=== PATIENT | male | born 1970 | race Caucasian/White ===

== ENCOUNTER 2021-04-20 09:53 | Outpatient (REF) | payer BC, SELFPAY ==
[2021-04-20 11:02] LABS: MANUAL DIFF FLAG NO
[2021-04-20 11:19] LABS: Basophils Absolute Auto 0.1 X10*3/uL (0.0-0.2); Basophils Percent Auto 1.2 % (0-2); Eosinophils Absolute Auto 0.4 X10*3/uL (0.0-0.4); Eosinophils Percent Auto 5.1 % (0-4); Hematocrit 47.9 % (42-52); Imm Gran Abs Auto 0.02 X10*3/uL (0.00-0.03); Imm Gran Pct Auto 0.3 % (0.0-0.4); Lymphocytes Absolute Auto 1.9 X10*3/uL (1.2-4.9); Lymphocytes Percent Auto 27.8 % (20-40); Mean Corpuscular HGB Conc 33.4 g/dl (31.0-36.0); Mean Corpuscular Hemoglobin 28.5 pg (27.0-33.0); Mean Corpuscular Volume 85.2 fL (80-98); Mean Platelet Volume 9.8 fL (9.4-12.4); Monocytes Absolute Auto 0.7 X10*3/uL (0.1-1.2); Monocytes Percent Auto 9.5 % (2-11); Neutrophils Absolute Auto 3.8 X10*3/uL (2.0-8.3); Neutrophils Percent Auto 56.1 % (45-73); Platelet Count 241 X10*3/uL (160-400); Red Blood Count 5.62 X10*6/uL (4.60-5.80); Red Cell Distribution Width 13.3 % (11.0-16.0); White Blood Count 6.8 X10*3/uL (4.8-10.8)
[2021-04-20 11:30] LABS: Alanine Aminotransferase 23 U/L (0-40); Albumin Level 4.6 g/dL (3.5-5.0); Alkaline Phosphatase 53 U/L (39-117); Anion Gap 11 (12-20); Aspartate Amino Transferase 19 U/L (5-37); Bilirubin Total 1.5 mg/dL (0.0-1.0); Blood Urea Nitrogen 9 mg/dL (9-16); Calcium 9.4 mg/dL (8.4-10.2); Carbon Dioxide 29 mmol/L (22-29); Chloride 104 mmol/L (96-108); Cholesterol 186 mg/dL; Estimated Glomerular Filt Rate > 60; Glucose Random 92 mg/dL (60-115); HDL Cholesterol 39 mg/dL; LDL Cholesterol Calculated 122 mg/dl; Potassium 4.6 mmol/L (3.3-5.1); Sodium 139 mmol/L (135-145); Triglycerides 126 mg/dL
[2021-04-20 11:54] LABS: Free T4 (Free Thyroxine) 0.83 ng/dL (0.71-1.85); Prostate Specific Antigen Scr 0.67 ng/mL (<0.05-4.0); Thyroid Stimulating Hormone 1.48 uIU/mL (0.32-4.0)
[2021-04-20 12:39] LABS: Folate 10.7 ng/mL (> or = 4.0); Vitamin B12 228 pg/mL (200-900)
== END 2021-04-20 09:54 | disposition home or self-care (01) ==
LOC: HO.LAB 09:53
PROVIDERS: PCP Internal Medicine; Visit Provider Internal Medicine
DX: E78.00 Pure hypercholesterolemia, unspecified (principal)
CPT/HCPCS: 36415; 80053; 80061; 82607; 82746; 84153; 84439; 84443; 85025

== ENCOUNTER → 2021-12-02 15:44 | Outpatient (BNVA) | payer BC, SELFPAY | PROVIDERS: PCP Internal Medicine; Referring Provider Internal Medicine; Visit Provider Surgery ==

== ENCOUNTER 2022-01-25 07:33 | Day surgery (SDC) | payer BC, SELFPAY ==
[2022-01-20 10:10] VITALS: BMI 34.4
--- NOTE | 2022-01-24 09:27 | HO.ANESPROP2 ---
Documented by User: Sarah De Oliveira NP 01/24/22 09:28 HPI - Anesthesia Eval Consult details Narrative: 51yo M for Left Hernia Repair Inguinal with Mesh PMFSH Active Problems Active Problems: All Active Problems (Updated 10/20/21 @ 08:48 by Jen Petty MD) Colon cancer screening (Acute) Vitamin B12 deficiency (Acute) Left inguinal hernia (Acute) Annual physical exam (Acute) Obesity (BMI 30-39.9) (Acute) Hypercholesterolemia (Acute) Past Medical History Medical History Closed left clavicular fracture Colonoscopy refused Hypercholesterolemia Obesity (BMI 30-39.9) Vitamin D deficiency Family History Family History Father Acute CVA (cerebrovascular accident) Hypertension Myocardial infarction Mother No problems noted. Paternal Grandmother CVD (cardiovascular disease) Myocardial infarction Paternal Grandfather Myocardial infarction Surgical History Surgical History History of inguinal hernia repair Social History Social History Housing: House Alcohol intake: current Alcohol intake frequency: a few times a month Patient Tobacco Use Status: Former Tobacco user Tobacco use type: Cigarette e-Cigarette/Vaping Use: Never Used Second Hand Smoke Exposure: No Use of substances other than those prescribed or required for medical reasons: No Are you DNR?: No Advance Directives: No Advance Directives Information Provided: Yes Recently lost weight without trying: No Nutrition Risks: No Nutritional Risk service: No Current occupational status: employed Meds Allergies Allergy/AdvReac Type Severity Reaction Status Date / Time No Known Allergies Allergy Verified 12/02/21 15:51 Home Medications Medication Instructions Recorded Confirmed Last Taken Type cholecalciferol (vitamin D3) 25 25 mcg PO DAILY 04/20/21 12/02/21 Unknown History mcg (1,000 unit) capsule cyanocobalamin (vitamin B-12) 3,000 mcg PO DAILY 12/02/21 12/02/21 Unknown History 3,000 mcg capsule Exam Exam Date and Time: January 24, 2022 0927 Height,Weight and Vital Signs: Height 5 ft 10 in Weight 108.862 kg Assessment and Plan Assessment Anesthesia Assessment: Chart Reviewed Documented by User: William Garcia MD 01/25/22 08:22 [facility] Past Medical History Medical History Closed left clavicular fracture Colonoscopy refused Hypercholesterolemia Obesity (BMI 30-39.9) Vitamin D deficiency Family History Family History Father Acute CVA (cerebrovascular accident) Hypertension Myocardial infarction Mother No problems noted. Paternal Grandmother CVD (cardiovascular disease) Myocardial infarction Paternal Grandfather Myocardial infarction Family history of problems with anesthesia: No Surgical History Surgical History History of inguinal hernia repair History of Problems with Anesthesia: No Social History Social History Housing: House Alcohol intake: current Alcohol intake frequency: a few times a month Patient Tobacco Use Status: Former Tobacco user Tobacco use type: Cigarette e-Cigarette/Vaping Use: Never Used Second Hand Smoke Exposure: No Use of substances other than those prescribed or required for medical reasons: No Are you DNR?: No Advance Directives: No Advance Directives Information Provided: Yes Recently lost weight without trying: No Nutrition Risks: No Nutritional Risk service: No Current occupational status: employed Meds Allergies Allergy/AdvReac Type Severity Reaction Status Date / Time No Known Allergies Allergy Verified 12/02/21 15:51 Home Medications Medication Instructions Recorded Confirmed Last Taken Type cholecalciferol (vitamin D3) 25 25 mcg PO DAILY 04/20/21 12/02/21 Unknown History mcg (1,000 unit) capsule cyanocobalamin (vitamin B-12) 3,000 mcg PO DAILY 12/02/21 12/02/21 Unknown History 3,000 mcg capsule Exam Airway Mallampati Class: III TM Dist: >3cm Neck ROM: Full Partial: Upper Assessment and Plan Assessment Anesthesia Assessment: Anesthesia Plan Discussed Final Anesthetic Review Family History of Problems with Anesthesia: No History of Problems with Anesthesia: No NPO: Yes ASA Class: II Final Preanesthetic Review: No Changes in Pt Med Stat, Meds/Allgs Chart Reviewed, Consent Obtained/Reviewed and Anes Risks/Benef Reviewed Patient Risk: Intermediate Procedure Risk: Low Anesthetic Plan Anesthetic Plan: GA Disposition: Standard PACU
[2022-01-25 07:51] VITALS: BMI 34.1
[2022-01-25 08:04] VITALS: BP 141/75; PULSE 72; RESP 16; TEMP 36.8; O2SAT 97
[2022-01-25] MEDS: Lactated Ringers 1,000 ML 100 ML IVCONT (08:21)
--- NOTE | 2022-01-25 09:49 | MHC.SHP ---
Pre-Procedural Eval Section A Date of Service: 01/25/22 Section B Chief Complaint: Left inguinal hernia Details of Present Illness: has had reducible mass on the left groin 2 years Relevant Family History (Specify if Yes): No Relevant Social History: None Present Medications: see Short Stay Collaborative assessment Medical History: Significant History (obesity, hyperlipidemia) Allergies: Allergies Allergy/AdvReac Type Severity Reaction Status Date / Time No Known Allergies Allergy Verified 12/02/21 15:51 Review of Systems Sugical H&P ROS: Negative: Constitution, Cardiovascular, Respiratory, Neurological, Psychiatric, Hem-Onc, Allergic/Immunologic, Gastrointestinal, Genitourinary, Musculoskeletal, Integumentary, Endocrine and Eyes/Ears/Nose/Throat Exam Surgical H&P Exam: Normal: HEENT, Normal: Heart, Normal: Lungs, Normal: Extremities, Normal: Skin and Normal: Neurological and Significant Findings: Abdomen (left inguinal hernia reducible) Plan Diagnosis/Plan: Unchanged I have reviewed the history and physical and performed a pertinent physical examination on my patient. No changes have occurred unless specified.
--- NOTE | 2022-01-25 11:20 | P.OP_ITS ---
Operative Note Operative Note Date of Service: 01/25/22 Narrative: Preop diagnosis: Left inguinal hernia Postop diagnosis: Left inguinal hernia, indirect Procedure: Repair of a left inguinal hernia with mesh Surgeon: Jef Bravo MD kindergarten assistant: EDIN Donis The patient is a 51-year-old male with a reducible mass on the left groin consistent with a left inguinal hernia. In view of symptoms he wanted to proceed with repair. He understood technique of repair with mesh. He was aware of the risks, benefits, and alternatives. He was brought to the operating room and placed supine on the table under general anesthesia via laryngeal mask airway. The left groin was prepped and draped in the usual sterile fashion. A surgical time-out was done. The patient received cefazolin 2 g IV preoperatively. I infiltrated the planned line of incision with lidocaine 1%. I made a short incision on the skin along an imaginary line from the anterior superior iliac spine to the pubic ramus using blade 15. This was carried down through the full- thickness of the skin and subcutaneous fat. The patient had a thick amount of subcutaneous fat in this area. We were able to eventually visualize the external oblique aponeurosis. The external ring was identified. I blunt dissected this to define the external ring. I opened the external oblique aponeurosis overlying the external ring with a blade 15. I applied hemostats on the divided edges. I then bluntly dissected the underside of the aponeurosis to create a pocket for the mesh. I proceeded to do blunt dissection of the spermatic cord and its contents with my index finger until was able to pass a Sussy drain around this. This [place] drain was used for traction. I was able to identify a large sac containing fat on the anteromedial aspect of the cord. I proceeded to gently separate this large sac for the rest of the cord contents using forceps. I was able to identify the vas deferens and its accompanying vessels and these were protected during this dissection. I continued to separate this large sac and its fatty contents all the way to the internal ring until was able to reduce this completely. This was therefore an indirect hernia. I force these internal ring with a medium-sized plug. This plug was secured with Prolene 2 sutures to shelving edge of the inguinal meant laterally, the internal oblique superiorly and medially using the inner leaves of the plug. I then reinforced the floor of the canal with a keyhole mesh. The tails of mesh were passed around the cord at the level of the internal ring and were secured together with Prolene 2 sutures around the cord. I flattened the mesh on the floor of the canal. I secured this to the shelving edge of the inguinal ligament laterally, the internal oblique superiorly and medially as well as the pubic ramus inferomedially. I observed for hemostasis. Once hemostasis was ensured, proceeded to then I closed the external oblique aponeurosis were running Dexon 2-0 stitch to re- create the external ring. I post the subcutaneous layer with Dexon 3-0 interrupted sutures. Skin closure was achieved with Dexon 4-0 subcuticular running stitch. The incision was infiltrated with Marcaine 0.5% for postop analgesia. Dressings were applied. The procedure was then completed The patient tolerated procedure well. There were no complications noted. Initial and final counts of sponges and instruments were correct. Estimated blood loss was about 25 cc. The patient was extubated without difficulty and transferred to the recovery room with stable vital signs.
[2022-01-25 11:40] VITALS: BP 123/84; PULSE 105; RESP 16; TEMP 36.8; O2SAT 96
[2022-01-25 11:45] VITALS: BP 142/88; PULSE 95; RESP 16; O2SAT 97
[2022-01-25 11:50] VITALS: BP 137/92; PULSE 93; RESP 18; O2SAT 94
[2022-01-25 11:55] VITALS: BP 147/90; PULSE 88; RESP 18; TEMP 36.8; O2SAT 94
[2022-01-25] MEDS: oxyCODONE HCl Immed Release 5 MG TABLET 10 MG PO (12:05)
[2022-01-25 12:10] VITALS: BP 123/73; PULSE 97; RESP 16; TEMP 36.6; O2SAT 95
== END 2022-01-25 12:46 | disposition home or self-care (01) ==
PROVIDERS: PCP Internal Medicine; Visit Provider Surgery
PROC: (CPT 49505; principal; 2022-01-25 09:40)
DX: K40.90 Unilateral inguinal hernia, without obstruction or gangrene, not specified as recurrent (principal); E78.00 Pure hypercholesterolemia, unspecified; E55.9 Vitamin D deficiency, unspecified; E66.9 Obesity, unspecified; Z68.34 Body mass index [BMI] 34.0-34.9, adult; Z79.899 Other long term (current) drug therapy; Z87.891 Personal history of nicotine dependence
CPT/HCPCS: 49505; C1781; J0690; J1100; J2250; J2405; J3010

== ENCOUNTER → 2022-02-07 09:34 | Outpatient (BNVA) | payer BC, SELFPAY | PROVIDERS: PCP Internal Medicine; Referring Provider Internal Medicine; Visit Provider Surgery | DX: Z13.89 Encounter for screening for other disorder (principal) ==

== ENCOUNTER → 2022-03-07 08:52 | Outpatient (BNVA) | payer BC, SELFPAY | PROVIDERS: PCP Internal Medicine; Visit Provider Surgery | DX: K40.90 Unilateral inguinal hernia, without obstruction or gangrene, not specified as recurrent (principal) ==

== ENCOUNTER 2022-03-29 06:09 | Day surgery (SDC) | payer BC, SELFPAY ==
[2022-03-22 12:01] VITALS: BMI 33.7
--- NOTE | 2022-03-25 09:39 | P.CONAN_ITS ---
Documented by User: Sarah De Oliveira NP 03/25/22 09:40 HPI - Anesthesia Eval Consult details Narrative: 51yo M for Colonoscopy s/p hernia repair 12/2021 with GA-LMA 5 PMFSH Active Problems Active Problems: All Active Problems (Updated 03/22/22 @ 11:55 by Garima Zamarripa RN) Annual physical exam (Acute) Left inguinal hernia (Acute) Vitamin B12 deficiency (Acute) Colon cancer screening (Acute) Obesity (BMI 30-39.9) (Acute) Hypercholesterolemia (Acute) Past Medical History Medical History Closed left clavicular fracture Hypercholesterolemia Obesity (BMI 30-39.9) Vitamin D deficiency Family History Family History Father Acute CVA (cerebrovascular accident) Hypertension Myocardial infarction Mother No problems noted. Paternal Grandmother CVD (cardiovascular disease) Myocardial infarction Paternal Grandfather Myocardial infarction Family history of problems with anesthesia: No Surgical History Surgical History History of inguinal hernia repair History of left inguinal hernia repair History of Problems with Anesthesia: No Social History Social History Housing: House Are you a primary managed care coordinator to a significant other at home: No Do you presently have visiting nurse or other home services: No Alcohol intake: current Alcohol intake frequency: holidays/special occasions only Patient Tobacco Use Status: Former Tobacco user Quit Date: > 10 yrs ago Tobacco use type: Cigarette e-Cigarette/Vaping Use: Never Used Second Hand Smoke Exposure: No Use of substances other than those prescribed or required for medical reasons: No Have you been hit, kicked, punched, or otherwise hurt by someone within the past year? If so, by whom?: No Are you DNR?: No Advance Directives: No Advance Directives Information Provided: Yes Advance Directives on File: No Recently lost weight without trying: No Eating poorly because of decreased appetite: No Nutrition Risks: No Nutritional Risk service: No Current occupational status: employed Meds Allergies Allergy/AdvReac Type Severity Reaction Status Date / Time No Known Allergies Allergy Verified 03/22/22 11:55 Home Medications Medication Instructions Recorded Confirmed Last Taken Type cholecalciferol (vitamin D3) 25 25 mcg PO DAILY 04/20/21 03/22/22 Unknown History mcg (1,000 unit) capsule cyanocobalamin (vitamin B-12) 3,000 mcg PO DAILY 12/02/21 03/22/22 Unknown History 3,000 mcg capsule Exam Exam Date and Time: March 25, 2022 0939 Height,Weight and Vital Signs: Height 5 ft 10 in Weight 106.594 kg Assessment and Plan Assessment Anesthesia Assessment: Chart Reviewed Final Anesthetic Review Family History of Problems with Anesthesia: No History of Problems with Anesthesia: No Documented by User: Aracelis Radford MD 03/29/22 07:44 [facility] Past Medical History Medical History Closed left clavicular fracture Hypercholesterolemia Obesity (BMI 30-39.9) Vitamin D deficiency Family History Family History Father Acute CVA (cerebrovascular accident) Hypertension Myocardial infarction Mother No problems noted. Paternal Grandmother CVD (cardiovascular disease) Myocardial infarction Paternal Grandfather Myocardial infarction Surgical History Surgical History History of inguinal hernia repair History of left inguinal hernia repair Social History Social History Housing: House Are you a primary managed care coordinator to a significant other at home: No Do you presently have visiting nurse or other home services: No Alcohol intake: current Alcohol intake frequency: holidays/special occasions only Patient Tobacco Use Status: Former Tobacco user Quit Date: > 10 yrs ago Tobacco use type: Cigarette e-Cigarette/Vaping Use: Never Used Second Hand Smoke Exposure: No Use of substances other than those prescribed or required for medical reasons: No Have you been hit, kicked, punched, or otherwise hurt by someone within the past year? If so, by whom?: No Are you DNR?: No Advance Directives: No Advance Directives Information Provided: Yes Advance Directives on File: No Recently lost weight without trying: No Eating poorly because of decreased appetite: No Nutrition Risks: No Nutritional Risk service: No Current occupational status: employed Meds Allergies Allergy/AdvReac Type Severity Reaction Status Date / Time No Known Allergies Allergy Verified 03/22/22 11:55 Home Medications Medication Instructions Recorded Confirmed Last Taken Type cholecalciferol (vitamin D3) 25 25 mcg PO DAILY 04/20/21 03/22/22 Unknown History mcg (1,000 unit) capsule cyanocobalamin (vitamin B-12) 3,000 mcg PO DAILY 12/02/21 03/22/22 Unknown History 3,000 mcg capsule Exam Height,Weight and Vital Signs: Height 5 ft 10 in Weight 106.594 kg Vital Signs Temp Pulse Resp BP Pulse Ox 03/29/22 06:26 96.9 F 85 18 136/87 97 Airway Mallampati Class: III TM Dist: >3cm Partial: Upper Loose/Missing/Broken Teeth: No (No loose) Heart: RRR Lungs: CTAB Assessment and Plan Assessment Anesthesia Assessment: Anesthesia Plan Discussed Final Anesthetic Review NPO: Yes ASA Class: II Final Preanesthetic Review: No Changes in Pt Med Stat, Meds/Allgs Chart Reviewed, Consent Obtained/Reviewed and Anes Risks/Benef Reviewed Patient Risk: Intermediate Procedure Risk: Low Assessment/Block/Sedation in SS: Assess/Block/Sedation-SS Anesthetic Plan Anesthetic Plan: MAC: Disposition: Standard PACU
[2022-03-29 06:26] VITALS: BP 136/87; PULSE 85; RESP 18; TEMP 36.1; O2SAT 97
--- NOTE | 2022-03-29 07:25 | MHC.SHP ---
Pre-Procedural Eval Section A Date of Service: 03/29/22 Section B Chief Complaint: screening Details of Present Illness: see H&P no changes Relevant Family History (Specify if Yes): No Relevant Social History: None Present Medications: see Short Stay Collaborative assessment Medical History: No relevant PMH History of Previous Operations: No relevant previous surgery Allergies: Allergies Allergy/AdvReac Type Severity Reaction Status Date / Time No Known Allergies Allergy Verified 03/22/22 11:55 Review of Systems Sugical H&P ROS: Negative: Constitution, Cardiovascular, Respiratory, Neurological, Psychiatric, Hem-Onc, Allergic/Immunologic, Gastrointestinal, Genitourinary, Musculoskeletal, Integumentary, Endocrine and Eyes/Ears/Nose/Throat Exam Surgical H&P Exam: Normal: HEENT, Normal: Heart, Normal: Lungs, Normal: Extremities, Normal: Abdomen, Normal: Skin and Normal: Neurological Plan Diagnosis/Plan: Unchanged I have reviewed the history and physical and performed a pertinent physical examination on my patient. No changes have occurred unless specified.
--- NOTE | 2022-03-29 07:51 | PM.OP ---
Brief Operative Note Date of Service: 03/29/22 Pre-op diagnosis: screening Post-op diagnosis: same Procedure: colonoscopy Surgeon: Leandro Wang Anesthesia: MAC Was an Chemical Research Technician used for this Procedure?: No Estimated blood loss (mL): 0 Pathology: none sent Condition: stable Disposition: PACU
[2022-03-29 07:52] VITALS: BP 102/64; PULSE 87; RESP 14; TEMP 36.5; O2SAT 96
[2022-03-29 08:07] VITALS: BP 120/73; PULSE 93; RESP 18; TEMP 36.1; O2SAT 97
--- NOTE | 2022-03-29 08:43 | OP_ITS ---
SURGEON: Leandro Wang MD INDICATIONS: Colon cancer screening. PREOPERATIVE DIAGNOSIS: POSTOPERATIVE DIAGNOSIS: PROCEDURE PERFORMED: Colonoscopy to the terminal ileum. ESTIMATED BLOOD LOSS: COMPLICATIONS: ANESTHESIA: Medications, monitored anesthesia care. ASSISTANTS: SPECIMENS: DESCRIPTION OF PROCEDURE: History and physical was performed. The risks and benefits of the procedure were explained to the patient. Informed consent was obtained. The patient was placed in the left lateral decubitus position. A digital rectal exam was performed and was found to be normal. The Olympus pediatric video colonoscope was introduced into the rectum and advanced to the cecum without difficulty. The cecum was identified by transillumination, palpation, and identification of ileocecal valve. Examination was performed. The scope was removed. He tolerated the procedure well and was taken to the recovery area in stable condition. FINDINGS: The terminal ileum was examined and appeared normal. The visualized colonic mucosa was normal. The quality of the prep was good. No polyps were identified. There was mild sigmoid diverticulosis with scattered diverticula in the transverse and right colon retroflexed examination showed small internal hemorrhoids. IMPRESSION: Normal colonoscopy. RECOMMENDATION: 1. Follow up as needed. 2. Repeat colonoscopy is recommended in 10 years for average risk individuals. MD JOS Barroso/CHELLY / [id number]
== END 2022-03-29 09:14 | disposition home or self-care (01) ==
PROVIDERS: PCP Internal Medicine; Visit Provider Internal Medicine Gastroenterology
PROC: 0DJD8ZZ Inspection of Lower Intestinal Tract, Via Natural or Artificial Opening Endoscopic (ICD-10-PCS; CPT 45378; principal; 2022-03-29 07:30)
DX: Z12.11 Encounter for screening for malignant neoplasm of colon (principal); K57.30 Diverticulosis of large intestine without perforation or abscess without bleeding; K64.8 Other hemorrhoids; E78.00 Pure hypercholesterolemia, unspecified; Z79.899 Other long term (current) drug therapy; Z87.891 Personal history of nicotine dependence
CPT/HCPCS: 45378

== ENCOUNTER 2022-04-06 08:39 | Outpatient (REF) | payer BC, SELFPAY ==
[2022-04-06 08:54] LABS: MANUAL DIFF FLAG NO
[2022-04-06 09:07] LABS: Basophils Absolute Auto 0.1 X10*3/uL (0.0-0.2); Basophils Percent Auto 1.1 % (0-2); Eosinophils Absolute Auto 0.2 X10*3/uL (0.0-0.4); Eosinophils Percent Auto 3.7 % (0-4); Hematocrit 48.7 % (42.0-52.0); Hemoglobin 15.9 g/dl (14.0-18.0); Imm Gran Abs Auto 0.02 X10*3/uL (0.00-0.03); Imm Gran Pct Auto 0.3 % (0.0-0.4); Lymphocytes Absolute Auto 1.9 X10*3/uL (1.2-4.9); Lymphocytes Percent Auto 29.8 % (20-40); Mean Corpuscular HGB Conc 32.6 g/dl (31.0-36.0); Mean Corpuscular Hemoglobin 27.8 pg (27.0-33.0); Mean Corpuscular Volume 85.3 fL (80.0-98.0); Mean Platelet Volume 9.5 fL (9.4-12.4); Monocytes Absolute Auto 0.6 X10*3/uL (0.1-1.2); Monocytes Percent Auto 8.9 % (2-11); Neutrophils Absolute Auto 3.5 x10*3/uL (2.0-8.3); Neutrophils Percent Auto 56.2 % (45-73); Platelet Count 235 X10*3/uL (160-400); Red Blood Count 5.71 X10*6/uL (4.60-5.80); Red Cell Distribution Width 13.6 % (11.0-16.0); White Blood Count 6.2 X10*3/uL (4.8-10.8)
[2022-04-06 09:31] LABS: Alanine Aminotransferase 19 U/L (0-40); Albumin Level 4.3 g/dL (3.5-5.0); Alkaline Phosphatase 50 U/L (39-117); Anion Gap 12 (12-20); Aspartate Amino Transferase 14 U/L (5-37); Bilirubin Total 1.1 mg/dL (0.0-1.0); Blood Urea Nitrogen 13 mg/dL (9-16); Calcium 9.3 mg/dL (8.4-10.2); Carbon Dioxide 26 mmol/L (22-29); Chloride 105 mmol/L (96-108); Cholesterol 184 mg/dL; Estimated Glomerular Filt Rate > 60; Glucose Random 92 mg/dL (60-115); HDL Cholesterol 34 mg/dL; LDL Cholesterol Calculated 128 mg/dl; Potassium 4.4 mmol/L (3.3-5.1); Sodium 139 mmol/L (135-145); Total Protein 6.8 g/dL (6.5-8.0); Triglycerides 111 mg/dL
[2022-04-06 09:59] LABS: Free T4 (Free Thyroxine) 0.97 ng/dL (0.71-1.85); Prostate Specific Antigen Scr 0.89 ng/mL (<0.05-4.0); Thyroid Stimulating Hormone 1.53 uIU/mL (0.32-4.0)
[2022-04-06 10:05] LABS: Folate > 20.0 ng/mL (> or = 4.0); Vitamin B12 309 pg/mL (200-900)
== END 2022-04-06 08:40 | disposition home or self-care (01) ==
LOC: HO.LAB 08:39
PROVIDERS: PCP Internal Medicine; Visit Provider Internal Medicine
DX: E78.00 Pure hypercholesterolemia, unspecified (principal); Z12.5 Encounter for screening for malignant neoplasm of prostate
CPT/HCPCS: 36415; 80053; 80061; 82607; 82746; 84153; 84439; 84443; 85025

== ENCOUNTER 2023-04-14 07:33 | Outpatient (REF) | payer BC, SELFPAY ==
[2023-04-14 07:52] LABS: MANUAL DIFF FLAG NO
[2023-04-14 08:26] LABS: Basophils Absolute Auto 0.1 X10*3/uL (0.0-0.2); Basophils Percent Auto 1.1 % (0-2); Eosinophils Absolute Auto 0.4 X10*3/uL (0.0-0.4); Eosinophils Percent Auto 4.9 % (0-4); Hematocrit 49.3 % (42.0-52.0); Hemoglobin 16.7 g/dl (14.0-18.0); Imm Gran Abs Auto 0.02 X10*3/uL (0.00-0.03); Imm Gran Pct Auto 0.3 % (0.0-0.4); Lymphocytes Absolute Auto 2.1 X10*3/uL (1.2-4.9); Lymphocytes Percent Auto 28.7 % (20-40); Mean Corpuscular HGB Conc 33.9 g/dl (31.0-36.0); Mean Corpuscular Hemoglobin 28.5 pg (27.0-33.0); Mean Corpuscular Volume 84.3 fL (80.0-98.0); Mean Platelet Volume 9.4 fL (9.4-12.4); Monocytes Absolute Auto 0.6 X10*3/uL (0.1-1.2); Platelet Count 252 X10*3/uL (160-400); Red Blood Count 5.85 X10*6/uL (4.60-5.80); Red Cell Distribution Width 13.2 % (11.0-16.0); White Blood Count 7.1 X10*3/uL (4.8-10.8)
[2023-04-14 09:05] LABS: Alanine Aminotransferase 19 U/L (0-40); Albumin Level 4.3 g/dL (3.5-5.0); Alkaline Phosphatase 57 U/L (39-117); Anion Gap 13 (12-20); Aspartate Amino Transferase 17 U/L (5-37); Bilirubin Total 1.7 mg/dL (0.0-1.0); Blood Urea Nitrogen 11 mg/dL (9-16); Calcium 9.5 mg/dL (8.4-10.2); Carbon Dioxide 27 mmol/L (22-29); Chloride 103 mmol/L (96-108); Cholesterol 183 mg/dL; Estimated Glomerular Filt Rate > 60; Glucose Random 92 mg/dL (60-115); HDL Cholesterol 39 mg/dL; LDL Cholesterol Calculated 122 mg/dl; Potassium 3.9 mmol/L (3.3-5.1); Sodium 139 mmol/L (135-145); Total Protein 7.1 g/dL (6.5-8.0); Triglycerides 110 mg/dL
[2023-04-14 09:22] LABS: Free T4 (Free Thyroxine) 0.87 ng/dL (0.71-1.85); Thyroid Stimulating Hormone 2.31 uIU/mL (0.32-4.0)
[2023-04-14 09:29] LABS: Folate 15.4 ng/mL (> or = 4.0); Prostate Specific Antigen Scr 0.73 ng/mL (<0.05-4.0); Vitamin B12 330 pg/mL (200-900)
== END 2023-04-14 07:34 | disposition home or self-care (01) ==
LOC: HO.LAB 07:33
PROVIDERS: PCP Internal Medicine; Visit Provider Internal Medicine
DX: Z12.5 Encounter for screening for malignant neoplasm of prostate (principal); E78.00 Pure hypercholesterolemia, unspecified
CPT/HCPCS: 36415; 80053; 80061; 82607; 82746; 84153; 84439; 84443; 85025

== ENCOUNTER 2023-05-29 12:21 | Outpatient (REF) | payer BC, SELFPAY ==
--- NOTE | ~2023-05-29 | US_ITS ---
EXAMINATION: US SCROTUM CLINICAL INFORMATION: Other specified disorders of the male genital organs. COMPARISON: None available. TECHNIQUE: A sonogram of the scrotum was performed assessing isidro-scale appearance and color Doppler flow. Spectral Doppler analysis of the arterial and venous flow were performed in the testes bilaterally. FINDINGS: RIGHT: Right testicle measures 5.6 x 2.7 x 3.5 cm, volume 27.2 mL. No focal testicular parenchymal lesions are visualized. Spectral Doppler analysis of the arterial and venous flow is normal in the right testis. Right epididymal head is normal in size. No right hydrocele or varicocele is seen. There is a 4 x 3 x 2 mm left extratesticular calcifications (scrotal chang). Right epididymal Doppler flow is normal. LEFT: Left testicle measures 5.1 x 3.5 x 3.6 cm, volume 34.4 mL. No focal testicular parenchymal lesions are visualized. Spectral Doppler analysis of the arterial and venous flow is equivocally increased in the left testis. Left epididymal head is normal in size. There is a large hydrocele. No left varicocele is seen. Left epididymal Doppler flow is normal. US/US scrotum IMPRESSION: 1. There is a large left hydrocele. 2. A 4 mm left extratesticular calcification (scrotal chnag) is seen. 3. There is equivocal increase in left testicular Doppler flow.
== END 2023-05-29 12:22 | disposition home or self-care (01) ==
LOC: HO.US 12:21
PROVIDERS: PCP Internal Medicine; Visit Provider Internal Medicine
DX: N50.89 Other specified disorders of the male genital organs (principal)
CPT/HCPCS: 76870

== ENCOUNTER 2023-07-12 08:45 | Outpatient (AMB) | payer BC, SELFPAY ==
--- NOTE | 2023-07-12 08:48 | MHC.OFFVIS ---
Intake Intake Visit Reasons: Hydrocele Intake Note: New Patient presents for initial visit for Hydrocele Urology Medications: none Blood Thinner: none Technical Specialist Cytogenetics Required: No Accompanied by: Self / Same As Patient Allergies No Known Allergies Allergy (Verified 07/12/23 09:31) Medication List - Last Reconciled 07/12/23 by JANINA Cardenas cholecalciferol (vitamin D3) 25 mcg PO DAILY cyanocobalamin (vitamin B-12) 3,000 mcg PO DAILY simvastatin 5 mg PO QPM HPI HPI Comments History of Present Illness Details Dion is a very pleasant 53-year-old male patient of Dr. Petty. He has a past medical history of obesity, hypercholesteremia, and vitamin-D deficiency. He presents to the office today as a new patient for left-sided hydrocele. In discussion with the patient today he reports having left-sided inguinal hernia repair last year and noting increase in left side of the scrotum. In review of patient's chart it appears scrotal ultrasound was performed. These results were reviewed with the patient today. There is a large left hydrocele. A 4 mm left extratesticular calcification (scrotal chang) is seen. In assessment of the patient today large left hydroceles present. Otherwise no lesions, drainage, or open areas noted. The penis is circumcised. No pain upon examination of penis, testicles, and or scrotum. When asked patient denies any bothersome urinary issues or concerns at this time. In office urinalysis results reviewed with the patient today. He denies urinary urgency, urinary frequency, incontinence, nocturia, hematuria, dysuria, foul smelling urine, changes to urinary stream, flank pain, fever, and or chills. He is happy with his current voiding parameters. Discussed at length potential causes of hydroceles. Discussed surgical intervention with left-sided hydrocelectomy. Discussed risks and benefits of surgical intervention versus surveillance monitoring. Patient reports hydrocele to be not bothersome and does not wish to proceed with any surgical intervention at this time. [facility] Medical History Closed left clavicular fracture Obesity (BMI 30-39.9) Hypercholesterolemia Vitamin D deficiency Surgical History History of left inguinal hernia repair History of inguinal hernia repair Family History Father Acute CVA (cerebrovascular accident) Hypertension Myocardial infarction Mother No problems noted. Paternal Grandmother CVD (cardiovascular disease) Myocardial infarction Paternal Grandfather Myocardial infarction Social History Housing: House Are you a primary hospice care sales consultant to a significant other at home: No Do you presently have visiting nurse or other home services: No Alcohol intake: current Alcohol intake frequency: holidays/special occasions only Patient Tobacco Use Status: Former Tobacco user Quit Date: > 10 yrs ago Tobacco use type: Cigarette Years Smoked: quit 1992 e-Cigarette/Vaping Use: Never Used Second Hand Smoke Exposure: No service: No Current occupational status: employed Cognitive needs: No Hearing needs: No Vision needs: Yes Review of Systems Const All systems reviewed & are unremarkable except as noted in HPI and below Eyes Reports no additional complaints ENT Reports no additional complaints Card Reports no additional complaints Resp Reports no additional complaints GI Reports as per HPI Reports as per HPI Musc Reports no additional complaints Neuro Reports no additional complaints Psych Reports no additional complaints Endo Reports no additional complaints Bj/Lymph Reports no additional complaints Aller/Immun Reports no additional complaints Physical Exam Const General: cooperative, healthy appearing, comfortable, no acute distress, well developed, alert and awake Nutritional Appearance: overweight Orientation/consciousness: patient oriented x3 Limitations: no limitations HEENT Head: Yes normal to inspection, Yes normocephalic and Yes atraumatic Ears: hearing grossly normal bilaterally Eyes General: appearance normal, both eyes and all related structures Neck Neck: Yes normal visual inspection and Yes trachea midline Chest Chest palpation & inspection: normal inspection of the chest Resp Effort & Inspection: normal respiratory effort and able to speak in complete sentences Cardio Rate: regular rate GI Inspection: Yes normal to inspection General: Yes no CVA tenderness Penis: normal penis and circumcised Meatus: meatus normal Scrotum: Hydrocele present (large) on the left Back/Spine/Pelvis Back: no CVA tenderness Skin General skin exam: no rashes or lesions noted Neuro General: patient oriented x3 Extrem General: Yes normal to inspection Psych Appearance: grossly normal and well kempt Mental Status: mental status grossly normal Speech and movement: Normal speech and movement present and Clear speech present Affect: normal affect Attitude: cooperative Thought process: Normal thought process present Thought content: Normal thought content present Insight: Good insight present (Psych) Judgement: Good judgement present (Psych) Results AMB Urinalysis, Automated UA Leukoctes 0 Amrita/uL Last Edit by Grant Agarwal on 07/12/23 09:03 UA Nitrite Last Edit by Grant Agarwal on 07/12/23 09:03 UA Urobilinogen 0.2 mg/dL Last Edit by Grant Agarwal on 07/12/23 09:03 UA Protein 15 mg/dL Last Edit by Grant Agarwal on 07/12/23 09:03 UA pH 8.0 Last Edit by Grant Agarwal on 07/12/23 09:03 UA Blood 0 López/uL Last Edit by Grant Agarwal on 07/12/23 09:03 UA Specific Twisp 1.015 Last Edit by Grant Agarwal on 07/12/23 09:03 UA Ketone Negative Last Edit by Grant Agarwal on 07/12/23 09:03 UA Bilirubin 0 mg/dL Last Edit by Grant Agarwal on 07/12/23 09:03 UA Glucose 0 mg/dL Last Edit by Grant Agarwal on 07/12/23 09:03 Results Reviewed Results Reviewed: Laboratory Last Values Urine pH (Auto) 8.0 07/12/23 08:50 Specific Twisp (Auto) 1.015 07/12/23 08:50 Urine Protein (Auto) 15 mg/dL 07/12/23 08:50 Glucose (UA)(Auto) 0 mg/dL 07/12/23 08:50 Urine Ketones (Auto) Negative 07/12/23 08:50 Urine Blood (Auto) 0 López/uL 07/12/23 08:50 Urine Bilirubin (Auto) 0 mg/dL 07/12/23 08:50 Urine Urobilinogen (Auto) 0.2 mg/dL 07/12/23 08:50 Leukocyte Esterase (Auto) 0 Amrita/uL 07/12/23 08:50 Date of Service: 05/29/23 EXAMINATION: US SCROTUM FINDINGS: RIGHT: Right testicle measures 5.6 x 2.7 x 3.5 cm, volume 27.2 mL. No focal testicular parenchymal lesions are visualized. Spectral Doppler analysis of the arterial and venous flow is normal in the right testis. Right epididymal head is normal in size. No right hydrocele or varicocele is seen. There is a 4 x 3 x 2 mm left extratesticular calcifications (scrotal chang). Right epididymal Doppler flow is normal. LEFT: Left testicle measures 5.1 x 3.5 x 3.6 cm, volume 34.4 mL. No focal testicular parenchymal lesions are visualized. Spectral Doppler analysis of the arterial and venous flow is equivocally increased in the left testis. Left epididymal head is normal in size. There is a large hydrocele. No left varicocele is seen. Left epididymal Doppler flow is normal. IMPRESSION: 1. There is a large left hydrocele. 2. A 4 mm left extratesticular calcification (scrotal chang) is seen. 3. There is equivocal increase in left testicular Doppler flow. Assessment & Plan Assessment & Plan (1) Hydrocele: Code(s): N43.3 - Hydrocele, unspecified Plan In office urinalysis results reviewed with the patient today; as noted above. Large left hydrocele Discussed hydrocelectomy; risks versus benefit Patient denies any bothersome urinary issues or concerns at this time At this time patient wishes to continue with surveillance monitoring as he reports no pain and feels it is not bothersome at this time. Follow up; PRN; patient will call if he wishes to move forward with surgical intervention or with any questions, concerns, and or issues. Orders: Orders AMB Urinalysis Automated Today Z13.9 - Encounter for screening, unspecified Patient Instructions: The patient had an opportunity to ask questions regarding the treatment plan. All questions were answered. Physical exam, labs, and imaging were discussed and reviewed in detail. As well as risks, benefits, and discussion of treatment choices. No major barriers to understanding were identified. The patient expressed understanding and agreement with the above treatment plan. The patient was made aware they should contact our office by phone for worsening of their current condition, the appearance of new symptoms, or with any questions or concerns. Compliance is encouraged with any medications and follow up testing that is ordered. It is a privilege to be allowed the opportunity to participate in? your urological care.? Again, if you have any questions or concerns If you have any questions or concerns please do not hesitate to contact me. The office is [phone]. This note is constructed using voice recognition software. While every effort has been made to ensure accuracy mixer blender errors may have been included. Yours sincerely, FITO Cardenas-JOS Coding Level of Care Code New Pt Level 3 (39253) Diagnoses Hydrocele N43.3
== END 2023-07-12 09:29 | disposition home or self-care (01) ==
PROVIDERS: PCP Internal Medicine; Referring Provider Internal Medicine; Visit Provider Nurse Practitioner Family
DX: N43.3 Hydrocele, unspecified (principal); Z13.9 Encounter for screening, unspecified
CPT/HCPCS: 99203; 99204

== ENCOUNTER → 2023-07-12 08:45 | Outpatient (BNVA) | payer BC, SELFPAY | PROVIDERS: PCP Internal Medicine; Referring Provider Internal Medicine; Visit Provider Nurse Practitioner Family | DX: N43.3 Hydrocele, unspecified (principal) | CPT/HCPCS: 81003 ==

== ENCOUNTER 2023-09-04 09:19 | Day surgery (SDC) | payer BC, SELFPAY ==
[2023-08-30 19:54] VITALS: BMI 33.0
[2023-09-04] VITALS (9 sets, daily range): BP systolic 126–150; BP diastolic 74–94; PULSE 73–89; RESP 16–18; TEMP 36.1–36.6; O2SAT 93–98; BMI 32.3
--- NOTE | 2023-09-04 10:38 | HO.ANESPROP2 ---
HPI - Anesthesia Eval Consult details Narrative: for cysto PMFSH Active Problems Active Problems: All Active Problems (Updated 07/12/23 @ 10:01 by MAME Cardenas) Hydrocele (Acute) Chronic hydrocele (Acute) Testicular swelling, left (Acute) History of left inguinal hernia repair (Acute) Annual physical exam (Acute) Vitamin B12 deficiency (Acute) Colon cancer screening (Acute) Obesity (BMI 30-39.9) (Acute) Hypercholesterolemia (Acute) Past Medical History Medical History Closed left clavicular fracture Obesity (BMI 30-39.9) Hypercholesterolemia Vitamin D deficiency Family History Family History Father Acute CVA (cerebrovascular accident) Hypertension Myocardial infarction Mother No problems noted. Paternal Grandmother CVD (cardiovascular disease) Myocardial infarction Paternal Grandfather Myocardial infarction Family history of problems with anesthesia: No Surgical History Surgical History History of left inguinal hernia repair History of inguinal hernia repair History of Problems with Anesthesia: No Social History Social History Housing: House Are you a primary home care associate to a significant other at home: No Do you presently have visiting nurse or other home services: No Alcohol intake: current Alcohol intake frequency: holidays/special occasions only Patient Tobacco Use Status: Former Tobacco user Quit Date: 30 years Tobacco use type: Cigarette Years Smoked: quit 1992 e-Cigarette/Vaping Use: Never Used Second Hand Smoke Exposure: No Use of substances other than those prescribed or required for medical reasons: No Have you been hit, kicked, punched, or otherwise hurt by someone within the past year? If so, by whom?: No Are you DNR?: No Advance Directives: No Advance Directives Information Provided: Yes Advance Directives on File: No service: No Current occupational status: employed Cognitive needs: No Hearing needs: No Vision needs: Yes Meds Allergies Allergy/AdvReac Type Severity Reaction Status Date / Time No Known Allergies Allergy Verified 09/04/23 09:28 Home Medications Medication Instructions Recorded Confirmed Last Taken Type cholecalciferol (vitamin D3) 25 25 mcg PO DAILY 04/20/21 09/04/23 09/03/23 History mcg (1,000 unit) capsule Exam Exam Date and Time: September 04, 2023 1038 Height,Weight and Vital Signs: Height 5 ft 10 in Weight 102.058 kg Last Vital Signs Temp 97.0 F 09/04/23 09:39 Pulse 85 09/04/23 09:39 Resp 16 09/04/23 09:39 BP 150/88 H 09/04/23 09:39 Pulse Ox 98 09/04/23 09:39 O2 Del Method Room Air 09/04/23 09:39 Airway Mallampati Class: II TM Dist: >3cm Neck ROM: Full Heart: rrr Lungs: cta Assessment and Plan Assessment Anesthesia Assessment: Anesthesia Plan Discussed Final Anesthetic Review Family History of Problems with Anesthesia: No History of Problems with Anesthesia: No NPO: Yes ASA Class: II Final Preanesthetic Review: No Changes in Pt Med Stat, Meds/Allgs Chart Reviewed, Consent Obtained/Reviewed and Anes Risks/Benef Reviewed Patient Risk: Low Procedure Risk: Low Anesthetic Plan Anesthetic Plan: GA Disposition: Standard PACU
--- NOTE | 2023-09-04 12:06 | MHC.SHP ---
Pre-Procedural Eval Section A Date of Service: 09/04/23 The patient is an INPATIENT: No Changes since office visit: No Cold of Flu in the past 2 weeks, No New Medical Problems, No Changes in Medication and No Patient answered all questions The History & Physical has been completed within 30 days and I have reviewed it.: No Section B Chief Complaint: Hydrocele, unspecified Details of Present Illness: left hydrocele Relevant Family History (Specify if Yes): No Relevant Social History: None Present Medications: see Short Stay Collaborative assessment Medical History: No relevant PMH History of Previous Operations: No relevant previous surgery Allergies: Allergies Allergy/AdvReac Type Severity Reaction Status Date / Time No Known Allergies Allergy Verified 09/04/23 09:28 Review of Systems Sugical H&P ROS: Negative: Constitution, Cardiovascular, Respiratory, Neurological, Psychiatric, Hem-Onc, Allergic/Immunologic, Gastrointestinal, Genitourinary, Musculoskeletal, Integumentary, Endocrine and Eyes/Ears/Nose/Throat Exam Surgical H&P Exam: Normal: HEENT, Normal: Heart, Normal: Lungs, Normal: Extremities, Normal: Abdomen, Normal: Skin and Normal: Neurological Plan Diagnosis/Plan: Unchanged ( left hydrocelectomy) I have reviewed the history and physical and performed a pertinent physical examination on my patient. No changes have occurred unless specified. Time Spent With Patient Time: Total time managing care of this patient today ____ minutes.
--- NOTE | 2023-09-04 13:04 | W.PM.OPN ---
Operative Note Operative Note Date of Service: 09/04/23 Narrative: PreOperative Diagnosis: Left hydrocele Post Operative Diagnosis: left hydrocele Procedure: Hydrocelectomy Surgeon: Dr Dylan Reed Anesthesia: General Indications for procedure: left hydrocele with persistent discomfort Procedure: After informed consent was verified the patient was brought to the operating room and placed in a supine position. Anesthesia was administered per protocol. Patient was appropriately shaved and genitals were prepped and draped in sterile fashion. Safety pause time-out was performed. Antibiotics being given. Local anesthetic was infiltrated under the skin in a horizontal fashion on the scrotum. Skin incision was made using a blade through the subdermal layer. The tunica around the testicle was elevated and dissected free from surrounding tissue. The avascular plane around the tunica was entered and using a wet sponge blunt dissection was performed. Any small bleeding perforators were cauterized. The testicle was delivered out of the scrotum and opened in a longitudinal fashion.. Fluid was removed - 150 cc. The testicle sac was inverted. Excess thickened sac was dissected and removed using a Thunderbeat cautery instrument to minimize post procedure bleeding. A bottle neck procedure was performed to approximate edges using a running 3-0 Vicryl suture. Skin edges of the tunica were cauterized carefully in order to try to minimize postprocedure hematoma. Small accessory appendices were removed from the head of epididymis. The testicle with resected sac was placed back into a dependent portion of the scrotum. Overlying skin fascia layer was closed with a running 3-0 Vicryl suture. Skin was closed with interrupted 4-0 chromic sutures. Soft fluff sponges were placed with mesh pants as dressing. Local anesthetic was placed in inguinal cord for post procedure pain relief. Patient tolerated procedure well was extubated in operating room transferred in stable condition to the recovery area Pathology: Hydrocele sac Drains: none
[2023-09-04] MEDS: Acetaminophen 325 MG TABLET 975 MG PO (13:45)
== END 2023-09-04 15:37 | disposition home or self-care (01) ==
PROVIDERS: PCP Internal Medicine; Visit Provider Urology
PROC: (CPT 55060; principal; 2023-09-04 12:50)
DX: N43.3 Hydrocele, unspecified (principal); E78.00 Pure hypercholesterolemia, unspecified; E55.9 Vitamin D deficiency, unspecified; E66.9 Obesity, unspecified; Z79.899 Other long term (current) drug therapy; Z87.891 Personal history of nicotine dependence
CPT/HCPCS: 55040; 88302; J0665; J0690; J1100; J1885; J2405; J3010

== ENCOUNTER → 2023-09-04 09:19 | Outpatient (BNV) | payer BC, SELFPAY | PROVIDERS: PCP Internal Medicine; Visit Provider Urology | DX: N43.3 Hydrocele, unspecified (principal) | CPT/HCPCS: 55040 ==

== ENCOUNTER 2023-09-21 13:21 | Emergency (ER) | payer BC, SELFPAY ==
[2023-09-21 13:22] VITALS: BP 144/91; PULSE 93; RESP 18; TEMP 36.8; O2SAT 98; BMI 33.0
--- NOTE | 2023-09-21 13:23 | ED_ITS ---
HPI - General Adult General Chief complaint: Urogenital-Male Stated complaint: Surgery incision bleeding Time Seen by Provider: 09/21/23 13:38 Source: patient and family Mode of arrival: ambulatory Limitations: no limitations History of Present Illness HPI narrative: Patient comes to the emergency room complaining of bleeding from a wound in the scrotum. Patient states that on September 04, patient had a hydrocelectomy done. Patient states that he has been doing well, today, patient started bleeding from the incision. Patient states that he did not have any trauma, no heavy lifting. Patient on blood thinners. Patient states that he has been taking ibuprofen every 6 hours for pain. Today, patient states that he has no pain but now he has the bleeding. Related Data Home Medications Medication Instructions Recorded Confirmed cholecalciferol (vitamin D3) 25 25 mcg PO DAILY 04/20/21 09/04/23 mcg (1,000 unit) capsule Previous Rx's Medication Instructions Recorded simvastatin 5 mg tablet 5 mg PO QPM #90 tabs 02/16/23 tramadol 50 mg tablet 50 mg PO Q6H PRN pain (scale score 09/04/23 4-6) #14 tabs Allergies Allergy/AdvReac Type Severity Reaction Status Date / Time No Known Allergies Allergy Verified 09/21/23 13:26 Review of Systems Review of Systems: Constitutional : No Weight loss, No Fever, No Chills, No Night Sweats, No Fatigue, No Malaise ENT/Mouth : No Hearing loss, No Ear Pain, No Nasal Congestion, No Sinus Pain, No Hoarseness, No sore throat, No Rhinorrhea, No Swallowing Difficulty Eyes: No Eye Pain, No Swelling, No Redness, No Foreign Body, No Discharge, No Vision Changes Cardiovascular : No Chest Pain, No SOB, No Dyspnea on Exertion, No Orthopnea, No Edema, No Palpitations Respiratory : No Cough, No Sputum, No Wheezing, No Smoke Exposure, No Dyspnea Gastrointestinal : No Nausea, No Vomiting, No Diarrhea, No Constipation, No abdominal Pain, No Hematochezia, No Melena Genitourinary : no irregular bleeding, No Dysuria, No Urinary Frequency, No Hematuria, No Urinary Incontinence, No Urgency, No Flank Pain, No Urinary Flow Changes, No Hesitancy Musculoskeletal : No joint pain, No Myalgias, No Joint Swelling Skin : Healing incision from the scrotum, small amount of bleeding from the middle of the incision Neuro : No Weakness, No Numbness, No Paresthesias, No Loss of Consciousness, No Dizziness, No Headache Psych : No Anxiety/Panic, No Depression, No SI/HI/AH/VH, No Social Issues, Heme/Lymph: No Bruising, No Bleeding,No Lymphadenopathy Endocrine : No Polyuria, No Polydipsia, No Temperature Intolerance PMFSH Past Medical History Medical History Closed left clavicular fracture Obesity (BMI 30-39.9) Hypercholesterolemia Vitamin D deficiency Surgical History History of left inguinal hernia repair History of inguinal hernia repair Family History Family History Father Acute CVA (cerebrovascular accident) Hypertension Myocardial infarction Mother No problems noted. Paternal Grandmother CVD (cardiovascular disease) Myocardial infarction Paternal Grandfather Myocardial infarction Social History Housing: House Are you a primary home health care case manager to a significant other at home: No Do you presently have visiting nurse or other home services: No Alcohol intake: current Alcohol intake frequency: holidays/special occasions only Patient Tobacco Use Status: Former Tobacco user Quit Date: 30 years Tobacco use type: Cigarette Years Smoked: quit 1992 e-Cigarette/Vaping Use: Never Used Second Hand Smoke Exposure: No Advance Directives: No Advance Directives Information Provided: No service: No Current occupational status: employed Cognitive needs: No Hearing needs: No Vision needs: Yes Physical Exam ED Vital Signs: Vital Signs - 24 hr 09/21/23 13:22 09/21/23 15:19 Temperature 98.3 F 98.3 F Pulse Rate 93 76 Respiratory Rate 18 16 Blood Pressure 144/91 H 132/74 Pulse Oximetry 98 97 Oxygen Delivery Method Room Air Room Air BMI result Body Mass Index 33.0 Const Other: Appearance: Alert. Oriented X3. No acute distress. Eyes: Pupils equal, round and reactive to light. ENT: Pharynx normal. Neck: Normal inspection. Neck supple. No lymph nodes noted. No crepitus CVS: Normal heart rate and rhythm. Pulses normal. Normal S1 and S2 Respiratory: No respiratory distress. Breath sounds normal. No Wheezing. No rales Abdomen: Soft and nontender. No rigidity. No distention. Skin: Skin warm and dry. Normal skin color. Normal skin turgor. Patient has a 4 cm surgical wound, looks clean, healing well. Right in the middle, there is a 2-3 mm area that is actively bleeding. Extremities: No lower extremity edema. No Lacerations. No Rash Neuro: Oriented X 3. No motor deficit. No sensory deficit. Moving all extremities. No slurred speech. CN 2 through 12 grossly intact Psych: calm, cooperative, normal affect Course Course Course Narrative: This is a rapid medical exam: Additional HPI, ROS, PE not included below will be deferred to primary provider. Patient is a 53-year-old male with recent hydrocele repair with Dr. eRed on 09/04 presenting to the ED with complaint of bleeding from the incision site today. States the only thing he has done different from his discharge instructions was to apply warm compresses a few ti mes. Denies fevers or any other drainage/discharge. Reports this is the first time he has had significant bleeding since the surgery. Has not been doing any lifting or excessive walking, etc. Medical Decision Making Medical Decision Making MDM Narrative: -I discussed the physical exam with the patient, no signs of infection, the swelling in the scrotum has significantly decreased per patient and his . -discussed with the patient that we will attempt Surgicel 1st. If this does not help to stop the bleeding, patient may need a stitch, patient and agree with plan. -after applying Surgicel, seems that the bleeding stops, there is no rectal bleeding. Patient is asymptomatic, no pain. -patient before discharge. I discussed with the patient that an attempt stopping the bleeding at home with pressure. If the bleeding will not stop or if he comes back to emergency room with it, likely he will need stitches. At this time, seems that pressure and Surgicel worked well for the patient. -also, patient states that he has in bed for 7 days straight. I discussed with the patient that if he has no pain or bleeding, I encouraged him to walk to avoid DVTs Differential Diagnosis Differential Diagnoses: The differential diagnosis associated with the presentation includes (Postsurgical bleeding, infection, re-injury) Discharge Plan Discharge Clinical Impression: Bleeding from wound Patient Disposition: Home, Self-Care Additional Instructions: Please follow-up with your primary care physician tomorrow. If you have any worsening or new symptoms, please return to the emergency room or call 911 Prescriptions: No Action simvastatin 5 mg tablet 5 mg PO QPM Qty: 90 2RF tramadol 50 mg tablet 50 mg PO Q6H PRN (Reason: pain (scale score 4-6)) Qty: 14 0RF cholecalciferol (vitamin D3) 25 mcg (1,000 unit) capsule 25 mcg PO DAILY
[2023-09-21 15:19] VITALS: BP 132/74; PULSE 76; RESP 16; TEMP 36.8; O2SAT 97
== END 2023-09-21 15:37 | disposition home or self-care (01) ==
PROVIDERS: Emergency Provider Emergency Medicine; PCP Internal Medicine
DX: T81.31XA Disruption of external operation (surgical) wound, not elsewhere classified, initial encounter (principal); Y82.8 Other medical devices associated with adverse incidents; Y92.9 Unspecified place or not applicable
CPT/HCPCS: 99282; 99283

== ENCOUNTER 2023-09-22 17:26 | Emergency (ER) | payer BC, SELFPAY ==
[2023-09-22 17:59] VITALS: BP 140/87; PULSE 109; RESP 20; TEMP 37.3; O2SAT 97; BMI 33.0
--- NOTE | 2023-09-22 18:02 | ED_ITS ---
HPI - General Adult General Chief complaint: Wound/Laceration Stated complaint: surgical site bleeding, seen yesterday Time Seen by Provider: 09/22/23 20:17 Source: patient and family Mode of arrival: ambulatory Limitations: no limitations History of Present Illness HPI narrative: 53-year-old male who presents emergency department for evaluation of bleeding from scrotal suturable wounds. The patient had a left scrotal hydrocele surgery by Dr. Reed on 09/04/2023. Patient states since surgery he has had a large left testicle which was not painful pain. The patient however started bleeding through the surgical site yesterday was seen in the emergency department. The bleeding was stopped using a Surgicel dressing. Patient states that this morning he noted bleeding again. He has tried to apply pressure to the bleeding area but continues to bleed through the gauze therefore came to emergency department for evaluation. He denied fever, chills, pain in the scrotal area. Related Data Home Medications Medication Instructions Recorded Confirmed cholecalciferol (vitamin D3) 25 25 mcg PO DAILY 04/20/21 09/04/23 mcg (1,000 unit) capsule Previous Rx's Medication Instructions Recorded simvastatin 5 mg tablet 5 mg PO QPM #90 tabs 02/16/23 tramadol 50 mg tablet 50 mg PO Q6H PRN pain (scale score 09/04/23 4-6) #14 tabs Allergies Allergy/AdvReac Type Severity Reaction Status Date / Time No Known Allergies Allergy Verified 09/22/23 18:03 Review of Systems Review of Systems: Yes all other systems are reviewed and are negative PMFSH Past Medical History Medical History Closed left clavicular fracture Obesity (BMI 30-39.9) Hypercholesterolemia Vitamin D deficiency Surgical History History of left inguinal hernia repair History of inguinal hernia repair Family History Family History Father Acute CVA (cerebrovascular accident) Hypertension Myocardial infarction Mother No problems noted. Paternal Grandmother CVD (cardiovascular disease) Myocardial infarction Paternal Grandfather Myocardial infarction Social History Housing: House Are you a primary healthcare financial analyst to a significant other at home: No Do you presently have visiting nurse or other home services: No Alcohol intake: current Alcohol intake frequency: holidays/special occasions only Patient Tobacco Use Status: Former Tobacco user Quit Date: 30 years Tobacco use type: Cigarette Years Smoked: quit 1992 e-Cigarette/Vaping Use: Never Used Second Hand Smoke Exposure: No Advance Directives: No Advance Directives Information Provided: No service: No Current occupational status: employed Cognitive needs: No Hearing needs: No Vision needs: Yes Physical Exam ED Vital Signs: Vital Signs - 24 hr 09/22/23 17:59 09/22/23 19:46 Temperature 99.2 F 99.6 F Pulse Rate 109 H 97 Respiratory Rate 20 18 Blood Pressure 140/87 H 143/88 H Pulse Oximetry 97 99 Oxygen Delivery Method Room Air Room Air BMI result Body Mass Index 33.0 Elevated heart rate 109, elevated blood pressure 148 General: Awake, alert , appears anxious but is cooperative : Patient's left scrotal area is large and firm consistent with a hematoma, there is dark blood draining from the surgical site and 1 small area, the wound does not appear to have significantly dehisced. There is no increased warmth or erythema noted. Course Course Course Narrative: This is a rapid medical exam: Additional HPI, ROS, PE not included below will be deferred to primary provider. Patient is a 53-year-old male presenting to the ED with ongoing surgical site bleeding to scrotum. Was seen in this ED last night for same complaint and was told to return if bleeding continued as he may require a suture. Medical Decision Making Medical Decision Making MDM Narrative: 53-year-old male who had a hydrocele removed by Dr. Reed on 09/04/2023 and presented to the emergency department yesterday for bleeding from the surgical incision, this was treated with a complex dressing but the patient's blood through the dressing and returns today for continued bleeding. Patient appears to have a large hematoma to the left scrotal area with dark blood using through the incision site. The patient applied pressure and the bleeding stopped, I did close the wound with skin glue and applied a pressure dressing with nonstick Telfa and several Tegaderm dressings. I did tell the patient that he is most likely going to lose through this dressing as well, I do not think that he has infection. He was advised to contact Dr. Reed's office on Monday more for follow-up. Differential Diagnosis Differential Diagnoses: The differential diagnosis associated with the presentation includes Differential diagnosis includes was not limited to hematoma, skin bleed, cellulitis Independent Historian Clinical information obtained from an independent historian. History obtained from or confirmed by: Spouse Discharge Plan Discharge Clinical Impression: Hemorrhage of scrotum Patient Disposition: Home, Self-Care Additional Instructions: At this time, I believe that you have a hematoma (collection of blood) in the scrotum and the blood is using through the surgical incision wound. I did try to close the wound with skin glue and I applied a nonstick dressing with Telfa and Tegaderm. Do not remove the dressing until you are seen by Dr. Reed. If you continue to bleed applied direct pressure to the bleeding site for at least 20 minutes with a gauze pad. Apply ice to your scrotum for 10 minutes 4 to 6 times a day to try to reduce the swelling in bleeding. Follow-up with your doctor in 2 days. Please return to the emergency department if your symptoms get worse or if you develop any symptoms that are concerning to you. Prescriptions: No Action simvastatin 5 mg tablet 5 mg PO QPM Qty: 90 2RF tramadol 50 mg tablet 50 mg PO Q6H PRN (Reason: pain (scale score 4-6)) Qty: 14 0RF cholecalciferol (vitamin D3) 25 mcg (1,000 unit) capsule 25 mcg PO DAILY
[2023-09-22 19:46] VITALS: BP 143/88; PULSE 97; RESP 18; TEMP 37.6; O2SAT 99
== END 2023-09-22 21:30 | disposition home or self-care (01) ==
PROVIDERS: Emergency Provider Emergency Medicine Emergency Medical Services; PCP Internal Medicine
DX: N50.1 Vascular disorders of male genital organs (principal); N43.3 Hydrocele, unspecified; Z87.891 Personal history of nicotine dependence
CPT/HCPCS: 99283

== ENCOUNTER 2023-09-26 15:21 | Outpatient (AMB) | payer BC, SELFPAY ==
--- NOTE | 2023-09-26 15:29 | MHC.OFFVIS ---
Intake Intake Visit Reasons: bleeding surgical sight Intake Note: Patient is present for Bleeding surgical site Patient states that after the Surgery for Hydrocele, patient states that he was not feeling any pain or discomfort, almost a week after he was in excruciating pain. He stated that he did take a bath with Epsom salt after he was told he can by a someone when he called here he was told that it was not advised that he should due to open wound. Since then the pain has been present and there has been blood coming out of incision site. Allergies No Known Allergies Allergy (Verified 10/12/23 11:36) Medication List - Last Reconciled 09/26/23 by Dylan Reed MD cholecalciferol (vitamin D3) 25 mcg PO DAILY simvastatin 5 mg PO QPM sulfamethoxazole-trimethoprim 800-160 mg (Bactrim DS) 1 tab PO BID 5 days tramadol 50 mg PO Q6H PRN tranexamic acid 650 mg PO BID 5 days HPI HPI Comments History of Present Illness Details Dion is a pleasant male. He is a patient of Dr. Petty. He seen for the following urologic conditions - hydrocele Underwent hydrocelectomy 9 days ago Delayed swelling on left side On examination found to have hematoma Using sterile technique with application of lidocaine incision opened and hematoma drained from scrotum Old hematoma consistent with concord jelly Significant improvement in pain Show course of tranexamic acid given to assist with clotting [facility] Medical History Closed left clavicular fracture Obesity (BMI 30-39.9) Hypercholesterolemia Vitamin D deficiency Surgical History History of left inguinal hernia repair History of inguinal hernia repair Family History Father Acute CVA (cerebrovascular accident) Hypertension Myocardial infarction Mother No problems noted. Paternal Grandmother CVD (cardiovascular disease) Myocardial infarction Paternal Grandfather Myocardial infarction Social History Housing: House Are you a primary insurance healthcare consultant to a significant other at home: No Do you presently have visiting nurse or other home services: No Alcohol intake: current Alcohol intake frequency: holidays/special occasions only Comment: medicated with oxycodone prior Patient Tobacco Use Status: Former Tobacco user Quit Date: 30 years Tobacco use type: Cigarette Years Smoked: quit 1992 e-Cigarette/Vaping Use: Never Used Second Hand Smoke Exposure: No service: No Current occupational status: employed Cognitive needs: No Hearing needs: No Vision needs: Yes Review of Systems Const Denies chills and Denies fever(s) Card Reports no additional complaints and Denies syncope Resp Denies cough GI Denies abdominal pain and Denies heartburn Reports as per HPI and Denies change in libido Neuro Denies syncope Psych Denies change in libido Endo Denies change in libido Physical Exam Const General: cooperative, healthy appearing, comfortable and no acute distress Orientation/consciousness: patient oriented x3 HEENT Face and sinus: Yes normal facial exam Mouth: moist mucous membranes Neck Neck: Yes normal visual inspection, Yes full ROM and Yes trachea midline Chest Chest palpation & inspection: normal inspection of the chest Resp Effort & Inspection: normal respiratory effort, able to speak in complete sentences and no respiratory distress GI Inspection: Yes normal to inspection Back/Spine/Pelvis Cervical Spine: normal cervical lordosis Thoracic/Lumbar Spine: thoracic and lumbar spine normal to inspection Skin General skin exam: no rashes or lesions noted Neuro General: patient oriented x3, gait normal, tone normal and moves all extremities Extrem General: Yes normal to inspection and Yes capillary refill normal Assessment & Plan Assessment & Plan (1) Hematoma: Code(s): T14.8XXA - Other injury of unspecified body region, initial encounter Plan Follow-up 4-6 weeks Medications: New sulfamethoxazole-trimethoprim 800-160 mg (Bactrim DS) 1 tab PO BID 10 tabs 0RF 5 days T14.8XXA - Other injury of unspecified body region, initial encounter, N39.0 - Urinary tract infection, site not specified tranexamic acid 650 mg PO BID 10 tabs 0RF 5 days T14.8XXA - Other injury of unspecified body region, initial encounter, N30.01 - Acute cystitis with hematuria Patient Instructions: Imaging studies, laboratory and physical exam results were discussed and reviewed in detail. No major barriers to patient understanding were identified. An opportunity to ask questions regarding the treatment plan was provided. All questions were answered. The patient expressed understanding and agreement with the above treatment plan. The patient is aware they should contact our office by phone for worsening of their current condition or the appearance of new urologic symptoms. Compliance is encouraged with any medications and followup testing that is ordered. It is a privilege to participate in the urologic care of your patient. If you have any questions or concerns regarding treatment for the above conditions, or other urologic issues, please do not hesitate to contact me. The office telephone contact is [phone]. This note is constructed using voice recognition software. While every effort has been made to ensure accuracy quality assurance errors may have been included. Yours sincerely, Dr Dylan Reed MD, [facility] - Urology Providers of Expert, Compassionate Care for the Genitourinary System Coding Level of Care Code Est Pt Level 3 (04516) Diagnoses Hematoma T14.8XXA
== END 2023-09-26 16:30 | disposition home or self-care (01) ==
PROVIDERS: PCP Internal Medicine; Referring Provider Internal Medicine; Visit Provider Urology
DX: T14.8XXA Other injury of unspecified body region, initial encounter (principal)
CPT/HCPCS: 10160; 99024

== ENCOUNTER → 2023-09-26 15:21 | Outpatient (BNVA) | payer BC, SELFPAY | PROVIDERS: PCP Internal Medicine; Visit Provider Urology | DX: L76.32 Postprocedural hematoma of skin and subcutaneous tissue following other procedure (principal) | CPT/HCPCS: 10160 ==

== ENCOUNTER 2023-10-12 11:09 | Outpatient (AMB) | payer BC, SELFPAY ==
--- NOTE | 2023-10-12 11:34 | MHC.OFFVIS ---
Intake Intake Visit Reasons: 4-6 week (hydrocele) Intake Note: Patient is Present for Follow Up Hydrocele Urology Medication: None Antibiotic Allergies: None Blood Thinners: None Allergies No Known Allergies Allergy (Verified 10/12/23 11:36) HPI HPI Comments History of Present Illness Details Dion is a pleasant male. He is a patient of Dr. Rodriguez. He seen for the following urologic conditions - hydrocele Left hydrocele healing slowly Had presented 2 weeks ago with delayed hematoma which was drained in the office Happy with current result 6 month follow-up [facility] Medical History Closed left clavicular fracture Obesity (BMI 30-39.9) Hypercholesterolemia Vitamin D deficiency Surgical History History of left inguinal hernia repair History of inguinal hernia repair Family History Father Acute CVA (cerebrovascular accident) Hypertension Myocardial infarction Mother No problems noted. Paternal Grandmother CVD (cardiovascular disease) Myocardial infarction Paternal Grandfather Myocardial infarction Social History Housing: House Are you a primary resident care aide to a significant other at home: No Do you presently have visiting nurse or other home services: No Alcohol intake: current Alcohol intake frequency: holidays/special occasions only Comment: medicated with oxycodone prior Patient Tobacco Use Status: Former Tobacco user Quit Date: 30 years Tobacco use type: Cigarette Years Smoked: quit 1992 e-Cigarette/Vaping Use: Never Used Second Hand Smoke Exposure: No service: No Current occupational status: employed Cognitive needs: No Hearing needs: No Vision needs: Yes Review of Systems Const Denies chills and Denies fever(s) Card Reports no additional complaints and Denies syncope Resp Denies cough GI Denies abdominal pain and Denies heartburn Reports as per HPI and Denies change in libido Neuro Denies syncope Psych Denies change in libido Endo Denies change in libido Physical Exam Const General: cooperative, healthy appearing, comfortable and no acute distress Orientation/consciousness: patient oriented x3 HEENT Face and sinus: Yes normal facial exam Mouth: moist mucous membranes Neck Neck: Yes normal visual inspection, Yes full ROM and Yes trachea midline Chest Chest palpation & inspection: normal inspection of the chest Resp Effort & Inspection: normal respiratory effort, able to speak in complete sentences and no respiratory distress GI Inspection: Yes normal to inspection Back/Spine/Pelvis Cervical Spine: normal cervical lordosis Thoracic/Lumbar Spine: thoracic and lumbar spine normal to inspection Skin General skin exam: no rashes or lesions noted Neuro General: patient oriented x3, gait normal, tone normal and moves all extremities Extrem General: Yes normal to inspection and Yes capillary refill normal Assessment & Plan Assessment & Plan (1) Hydrocele: Code(s): N43.3 - Hydrocele, unspecified Plan Six month follow-up Patient Instructions: Imaging studies, laboratory and physical exam results were discussed and reviewed in detail. No major barriers to patient understanding were identified. An opportunity to ask questions regarding the treatment plan was provided. All questions were answered. The patient expressed understanding and agreement with the above treatment plan. The patient is aware they should contact our office by phone for worsening of their current condition or the appearance of new urologic symptoms. Compliance is encouraged with any medications and followup testing that is ordered. It is a privilege to participate in the urologic care of your patient. If you have any questions or concerns regarding treatment for the above conditions, or other urologic issues, please do not hesitate to contact me. The office telephone contact is [phone]. This note is constructed using voice recognition software. While every effort has been made to ensure accuracy certified prosthetist vice president errors may have been included. Yours sincerely, Dr Dylan Reed MD, [facility] - Urology Providers of Expert, Compassionate Care for the Genitourinary System Coding Level of Care Code Est Pt Level 3 (22270) Diagnoses Hydrocele N43.3
== END 2023-10-12 12:05 | disposition home or self-care (01) ==
PROVIDERS: PCP Internal Medicine; Visit Provider Urology
DX: N43.3 Hydrocele, unspecified (principal)
CPT/HCPCS: 99024

== ENCOUNTER → 2023-10-12 11:09 | Outpatient (BNVA) | payer BC, SELFPAY | PROVIDERS: PCP Internal Medicine; Visit Provider Urology ==

== ENCOUNTER 2024-04-22 07:30 | Outpatient (REF) | payer BC, SELFPAY ==
[2024-04-22 07:49] LABS: MANUAL DIFF FLAG NO
[2024-04-22 08:40] LABS: Basophils Absolute Auto 0.1 X10*3/uL (0.0-0.2); Basophils Percent Auto 1.6 % (0-2); Eosinophils Absolute Auto 0.4 X10*3/uL (0.0-0.4); Eosinophils Percent Auto 5.3 % (0-4); Hemoglobin 15.7 g/dl (14.0-18.0); Imm Gran Abs Auto 0.02 X10*3/uL (0.00-0.03); Imm Gran Pct Auto 0.3 % (0.0-0.4); Lymphocytes Absolute Auto 2.1 X10*3/uL (1.2-4.9); Lymphocytes Percent Auto 30.8 % (20-40); Mean Corpuscular HGB Conc 33.4 g/dl (31.0-36.0); Mean Corpuscular Hemoglobin 28.4 pg (27.0-33.0); Mean Platelet Volume 9.3 fL (9.4-12.4); Monocytes Absolute Auto 0.6 X10*3/uL (0.1-1.2); Monocytes Percent Auto 9.3 % (2-11); Neutrophils Absolute Auto 3.6 x10*3/uL (2.0-8.3); Neutrophils Percent Auto 52.7 % (45-73); Platelet Count 250 X10*3/uL (160-400); Red Blood Count 5.53 X10*6/uL (4.60-5.80); Red Cell Distribution Width 13.5 % (11.0-16.0); White Blood Count 6.9 X10*3/uL (4.8-10.8)
[2024-04-22 09:10] LABS: Alanine Aminotransferase 18 U/L (0-40); Albumin Level 4.2 g/dL (3.5-5.0); Alkaline Phosphatase 48 U/L (39-117); Anion Gap 11 (12-20); Aspartate Amino Transferase 16 U/L (5-37); Blood Urea Nitrogen 14 mg/dL (9-16); Calcium 9.5 mg/dL (8.4-10.2); Carbon Dioxide 29 mmol/L (22-29); Chloride 105 mmol/L (96-108); Cholesterol 176 mg/dL (<200); Estimated Glomerular Filt Rate > 60; Glucose Random 95 mg/dL (60-115); HDL Cholesterol 32 mg/dL (>40); LDL Cholesterol Calculated 123 mg/dL (<100); Potassium 4.1 mmol/L (3.3-5.1); Sodium 141 mmol/L (135-145); Total Protein 6.7 g/dL (6.5-8.0); Triglycerides 106 mg/dL (<150)
[2024-04-22 09:30] LABS: Free T4 (Free Thyroxine) 0.81 ng/dL (0.71-1.85); Thyroid Stimulating Hormone 1.78 uIU/mL (0.32-4.0)
[2024-04-22 09:33] LABS: Folate 7.6 ng/mL (> or = 4.0); Vitamin B12 289 pg/mL (200-900)
== END 2024-04-22 07:31 | disposition home or self-care (01) ==
LOC: HO.LAB 07:30
PROVIDERS: PCP Internal Medicine; Visit Provider Internal Medicine
DX: E78.00 Pure hypercholesterolemia, unspecified (principal); Z12.5 Encounter for screening for malignant neoplasm of prostate
CPT/HCPCS: 36415; 80053; 80061; 82607; 82746; 84153; 84439; 84443; 85025

== ENCOUNTER 2024-05-06 08:41 | Outpatient (AMB) | payer BC, SELFPAY ==
[2024-05-06 08:46] VITALS: BP 130/78; PULSE 67; O2SAT 98; BMI 33.3
--- NOTE | 2024-05-06 08:46 | A.OFFPC_ITS ---
Vital Signs 05/06/24 08:46 Height 5 ft 10 in Weight 232 lb BMI 33.3 BP 130/78 Blood Pressure Location Lt brachial Position Sitting Pulse 67 Pulse Source Pulse Oximeter Pulse Oximetry (%) 98 Oxygen Delivery Method Room Air Intake Visit Reasons: pe Allergies No Known Allergies Allergy (Verified 05/06/24 08:46) Medication List - Last Reconciled 05/06/24 by Jen Petty MD cholecalciferol (vitamin D3) 25 mcg PO DAILY simvastatin 5 mg PO QPM Tobacco use date assessed: 05/06/24 Dental Screening Dental Screen Date: 05/06/24 Did you have a dental visit in the last 12 months?: Yes Did you have a dental problem in the last 6 months where you did not have access to dental care?: No Was dental information given to patient?: Patient has dentist HPI pe HPI Details 53-year-old obese male with a history of hypercholesterolemia coming in for physical exam last seen last year. Patient's colonoscopy is up-to-date 03/18/2022 10 years.. Review of the notes has been followed up by Urology in September was seen post hydrocelectomy(August 2023) had drainage done showing hematoma continue to monitor. cough on playing [email or web address] Medical History (Updated 05/06/24 @ 08:55 by Jen Petty MD) Colon cancer screening Closed left clavicular fracture Obesity (BMI 30-39.9) Hypercholesterolemia Vitamin D deficiency Surgical History History of left inguinal hernia repair History of inguinal hernia repair Family History (Updated 05/06/24 @ 08:47 by Ai Ahn CMA) Father Acute CVA (cerebrovascular accident) Hypertension Myocardial infarction Mother No problems noted. Paternal Grandmother CVD (cardiovascular disease) Myocardial infarction Paternal Grandfather Myocardial infarction Social History (Updated 05/06/24 @ 09:01 by Jen Petty MD) Housing: House Are you a primary healthcare administration intern to a significant other at home: No Do you presently have visiting nurse or other home services: No Alcohol intake: current Alcohol intake frequency: holidays/special occasions only Comment: 2 x a month 2-3 beers Patient Tobacco Use Status: Former Tobacco user Tobacco use type: Cigarette Years Smoked: quit 1992 e-Cigarette/Vaping Use: Never Used Second Hand Smoke Exposure: No service: No Current occupational status: employed Cognitive needs: No Hearing needs: No Vision needs: Yes Questionnaire PHQ-9 Over the last 2 weeks, how often have you been bothered by any of the following problems? 1. Little interest or pleasure in doing things: not at all 2. Feeling down, depressed, or hopeless: not at all 3. Trouble falling or staying asleep, or sleeping too much: not at all 4. Feeling tired or having little energy: not at all 5. Poor appetite or overeating: not at all 6. Feeling bad about yourself - or that you are a failure or have let yourself or your family down: not at all 7. Trouble concentrating on things, such as reading the newspaper or watching television: not at all 8. Moving or speaking so slowly that other people could have noticed. Or the opposite - being so fidgety or restless that you have been moving around a lot more than usual: not at all 9. Thoughts that you would be better off or of hurting yourself in some way: not at all Total score: 0 Depression Screening Interpretation: Negative Depression Screening Done: Yes Source: Developed by Drs. Bull Duong, Diana Terry, Car Patrick and colleagues, with an educational mazin from [employer]. Thrive Questionnaire Date Thrive assessed: 05/06/24 I am a: Patient What is your living situation today?: I have a steady place to live Within the past 12 months, did the food you bought not last and you didn't have the money to get more?: Never true Within the past 12 months, did you worry whether your food would run out before you got money to buy more?: Never true Do you have trouble paying for medicines?: No Do you have trouble getting transportation to medical appointments?: No Do you have trouble paying your heating and electricity bill?: No Do you have trouble taking care of your child, family member or friend?: No Do you have trouble with day-to-day activities such as bathing, preparing meals, shopping, managing finances, etc.?: No Are you currently unemployed and looking for a job?: No Are you interested in more education?: No Currently or been in a relationship where the following occur: No concerns reported THRIVE Score: 0 AUDIT C Alcohol Use Questionnaire (AUDIT-C) 1. How often do you have a drink containing alcohol?: 2-4 times a month 2. How many drinks containing alcohol do you have on a typical day when you are drinking?: 1 or 2 3. How often do you have six or more drinks on one occasion?: Never Total Score: 2 ROSI-7 AMB Questionnaire ROSI-7 Date ROSI - 7 assessed: 05/06/24 Feeling nervous, anxious, or on edge: 0 = Not at all Not being able to stop or control worryin = Not at all Worrying too much about different things: 0 = Not at all Trouble relaxin = Not at all Being so restless that it is hard to sit still: 0 = Not at all Becoming easily annoyed or irritable: 0 = Not at all Feeling afraid as if something awful might happen: 0 = Not at all Total ROSI-7 score (0-4 normal; 5-9 mild; 10-14 moderate; 15-21 severe): 0 Source: Developed by Drs. Bull Duong, Diana Terry, Car Patrick and colleagues, with an educational mazin from [employer]. Review of Systems Const Denies poor appetite and Denies weakness Eyes Denies no additional complaints ENT Reports Normal hearing present, Denies dizziness, Denies nasal congestion, Denies tinnitus and Denies sore throat Card Denies chest pain, Denies syncope, Denies rapid heart rate and Denies dyspnea Resp Denies cough and Denies dyspnea GI Denies change in stool character, Reports constipation, Denies diarrhea, Denies nausea and Denies vomiting Denies dysuria and Denies urinary frequency Neuro Reports Normal hearing present, Denies confusion, Denies dizziness, Denies syncope and Denies weakness Psych Denies confusion Physical exam (Primary Care) Vital Signs: Last Vital Signs Pulse 67 05/06/24 08:46 BP 130/78 05/06/24 08:46 Pulse Ox 98 05/06/24 08:46 Oxygen Delivery Method Room Air 05/06/24 08:46 BMI result Body Mass Index 33.3 Tobacco/Smoking Status: Tobacco use Status Tobacco use date assessed 05/06/24 05/06/24 08:52 Patient Tobacco Use Status Former Tobacco user 05/06/24 08:52 Tobacco use type Cigarette 05/06/24 08:52 e-Cigarette/Vaping Use Never Used 05/06/24 08:52 PHQ-9: PHQ-9 Score PHQ-9: Total score 0 05/06/24 08:52 Depression Screening Interpretation: Negative Thrive Assessment: Date of Thrive Assessment Date Thrive assessed 05/06/24 05/06/24 08:52 Currently or been in a relationship where the following occur: No concerns reported Const General: No confusion Orientation/consciousness: No confusion HENMT Head: Yes normocephalic Ears: external ears normal and TM's normal bilaterally Face and sinus: Yes normal facial exam Mouth: moist mucous membranes Throat: Yes tonsils normal Eyes Conjunctivae: conjunctivae normal Pupils: Equal, round and reactive pupils present and Pupil accommodation reflex normal Direct Ophthalmoscopy: normal light reflex Neck Neck: No lymphadenopathy Thyroid: Thyroid normal Chest Chest palpation & inspection: normal inspection of the chest Resp Effort & Inspection: normal respiratory effort and no audible wheezes Auscultation: clear to auscultation bilaterally, no crackles, no wheezes and lung sounds not diminished Cardio Rate: regular rate Rhythm: regular rhythm Peripheral pulses: radial pulses present and dorsalis pedis present GI Other: guaiac negative prostate N Palpation (GI): no masses Auscultation: normal bowel sounds and normoactive bowel sounds Skin General skin exam: no rashes or lesions noted Rashes: no rashes Neuro General: No confusion Cranial nerves: Yes Equal, round and reactive pupils present and Yes Normal hearing present Cognition (Neuro): normal cognition Gait exam (Neuro): Normal gait present Motor exam (neuro): 5/5 motor strength present throughout Deep tendon reflexes (DTR's): Right brachioradialis reflex intensity grade: 2+, Left brachioradialis reflex intensity grade: 2+, Right patellar reflex intensity grade: 2+ and Left patellar reflex intensity grade: 2+ Extrem General: No edema Assessment and Plan Assessment & Plan (1) Annual physical exam: Code(s): Z00.00 - Encounter for general adult medical examination without abnormal findings Plan: Patient is advised to eat healthy, keep well hydrated, keep active and have adequate sleep. (2) Obesity (BMI 30-39.9): Code(s): E66.9 - Obesity, unspecified Plan: Diet and exercise (3) Hypercholesterolemia: Code(s): E78.00 - Pure hypercholesterolemia, unspecified Plan: Avoid fried foods, chicken skin, eggs, butter margarine, pastries and meat. Be it pork or beef they have a lot of cholesterol LDL goal of less than 130 and triglyceride of less than 150. Patient on simvastatin 5 mg once a day (4) Vitamin B12 deficiency: Code(s): E53.8 - Deficiency of other specified B group vitamins Plan: Vitamin B12 1000 mcg once a day (5) Hydrocele: Comment: Hydrocelectomy 08/2023 Code(s): N43.3 - Hydrocele, unspecified Plan: Status post hydrocelectomy in August had some bleeding in September and this has been resolving monitored by Urology. Orders: Orders Comprehensive Met. Panel 1 Year E78.00 - Pure hypercholesterolemia, unspecified Free T4 (Free Thyroxine) 1 Year E78.00 - Pure hypercholesterolemia, unspecified Lipid Panel 1 Year E78.00 - Pure hypercholesterolemia, unspecified Complete Blood Count Auto Diff 1 Year E78.00 - Pure hypercholesterolemia, unspecified Thyroid Stimulating Hormone 1 Year E78.00 - Pure hypercholesterolemia, unspecified Vitamin B12 and Folate 1 Year E78.00 - Pure hypercholesterolemia, unspecified Prostate Specific Antigen Scr 1 Year E78.00 - Pure hypercholesterolemia, unspecified Coding Level of Care Code Est Pt Prev Care 40-64y(70836) Diagnoses Annual physical exam Z00.00 Obesity (BMI 30-39.9) E66.9 Hypercholesterolemia E78.00 Vitamin B12 deficiency E53.8 Hydrocele N43.3
== END 2024-05-06 09:16 | disposition home or self-care (01) ==
PROVIDERS: PCP Internal Medicine; Visit Provider Internal Medicine
DX: Z00.00 Encounter for general adult medical examination without abnormal findings (principal); E78.00 Pure hypercholesterolemia, unspecified; E53.8 Deficiency of other specified B group vitamins; N43.3 Hydrocele, unspecified
CPT/HCPCS: 99396

== ENCOUNTER 2025-06-24 07:27 | Outpatient (REF) | payer BC, SELFPAY ==
--- OUTSIDE RECORDS SUMMARY | 2025-06-24 07:31 | XMS_ITS | Patient Health Record ---
Author Organization [facility] Address [address] [place] [id number] Care Team Providers Care Biometrics Experimentalist Name Role Phone Jen Petty MD Primary Care Provider Leandro Miguel Jr Unavailable [phone] Allergies No Known Allergies Reason For Referral No Information Medications Medication SIG (Take, Route, Frequency, Duration) Notes Start Date End Date Status MiraLax (colon prep) 17 GM/SCOOP mixed with Gatorade or Crystal Light Orally begin at 5:00 p.m. the day before the procedure for 1 day 01/24/2022 Active Vitamin D 50 MCG (1999) 1 tablet Oral ly Once a day for 30 day(s) 01/24/2022 Active Simvastatin 5 MG TAKE 1 TABLET BY EVERY DAY IN THE EVENING Oral for 90 Active Immunizations Vaccine Route Administration Date Status Comme nts Influenza Unknown 01/24/2022 Refused Social History Tobacco Use: Social History Observation Description Date Details (start date - stop date) Former Smoker NA - NA Tobacco Use/Smoking Question Answer Notes Patient is a former smoker How long has it been since you last smoked? > 10 years Alcohol Screen Question Answer Notes Did you have a drink contain ing alcohol in the past year? Yes How often did you have a dri nk containing alcohol in the past year? Monthly or less (1 point) How many drinks did you have on a typical day when you were drinking in the past year? 1 or 2 drinks (0 point) How often did you have 6 or more drinks on one occasion in the past year? Never (0 point) Points 1 Interpretation Negative Problems Problem Type SNOMED Code ICD Code Onset Dates Problem Status W/U Status Risk Notes Problem [id number] Colon cancer screening (Z12.11) Active confirmed Problem [id number] Encounter for other preprocedural examination (Z01.818) Active confirmed Plan Of Treatment Future Test Test Name Order Date COLONOSCOPY 01/24/2022 Insurance Providers Payer Name Payer Address Payer Phone Subscriber Number Group Number Insured Name Patient Relationship to Insured Coverage Start Date Coverage End Date [facility] [employer] [address] [place] [address] [id number] [id number] MÁRQUEZ Self - patient is the insured Medical (General) History Medical History History ICD Code high cholesterol Left inguinal hernia, repair scheduled Surgical History Surgery Date(Month/Year) hernia 2002
[2025-06-24 07:38] LABS: MANUAL DIFF FLAG NO
[2025-06-24 08:12] LABS: Hematocrit 45.0 % (42.0-52.0); Hemoglobin 15.4 g/dl (14.0-18.0); Imm Gran Abs Auto 0.03 X10*3/uL (0.00-0.03); Imm Gran Pct Auto 0.4 % (0.0-0.4); Lymphocytes Absolute Auto 1.8 X10*3/uL (1.2-4.9); Mean Corpuscular HGB Conc 34.2 g/dl (31.0-36.0); Mean Corpuscular Hemoglobin 28.5 pg (27.0-33.0); Mean Corpuscular Volume 83.3 fL (80.0-98.0); NRBC Abs Auto 0.000 X10*3/uL (0.0-0.012); NRBC Pct Auto 0.0 /100WBC (0.0-0.2); Platelet Count 242 X10*3/uL (160-400); Red Blood Count 5.40 X10*6/uL (4.60-5.80); White Blood Count 7.2 X10*3/uL (4.8-10.8)
[2025-06-24 08:46] LABS: Alanine Aminotransferase 22 U/L (0-40); Albumin Level 4.5 g/dL (3.5-5.0); Alkaline Phosphatase 54 U/L (39-117); Anion Gap 11 (12-20); Aspartate Amino Transferase 23 U/L (5-37); Blood Urea Nitrogen 12 mg/dL (9-16); Calcium 9.0 mg/dL (8.4-10.2); Carbon Dioxide 28 mmol/L (22-29); Chloride 105 mmol/L (96-108); Cholesterol 184 mg/dL (<200); Estimated Glomerular Filt Rate > 60; HDL Cholesterol 33 mg/dL (>40); Potassium 4.3 mmol/L (3.3-5.1); Sodium 140 mmol/L (135-145); Total Protein 6.9 g/dL (6.5-8.0); Triglycerides 129 mg/dL (<150)
[2025-06-24 09:04] LABS: Free T4 (Free Thyroxine) 0.88 ng/dL (0.71-1.85); Thyroid Stimulating Hormone 1.85 uIU/mL (0.32-4.0)
[2025-06-24 09:15] LABS: Folate 11.4 ng/mL (> or = 4.0); Vitamin B12 356 pg/mL (200-900)
== END 2025-06-24 07:28 | disposition home or self-care (01) ==
LOC: HO.LAB 07:27
PROVIDERS: PCP Internal Medicine; Visit Provider Internal Medicine
DX: E78.00 Pure hypercholesterolemia, unspecified (principal); Z12.5 Encounter for screening for malignant neoplasm of prostate
CPT/HCPCS: 36415; 80053; 80061; 82607; 82746; 84153; 84439; 84443; 85025

== ENCOUNTER 2025-07-03 09:21 | Outpatient (AMB) | payer BC, SELFPAY ==
[2025-07-03 09:26] VITALS: BP 130/72; PULSE 61; O2SAT 98; BMI 33.1
--- NOTE | 2025-07-03 09:26 | A.OFFPC_ITS ---
Vital Signs 07/03/25 09:26 Height 5 ft 10 in Weight 231 lb BMI 33.1 BP 130/72 Blood Pressure Location Lt brachial Position Sitting Pulse 61 Pulse Source Pulse Oximeter Pulse Oximetry (%) 98 Oxygen Delivery Method Room Air Intake Visit Reasons: ANNUAL Allergies No Known Allergies Allergy (Verified 07/03/25 09:27) Medication List - Last Reconciled 07/03/25 by Jen Petty MD cholecalciferol (vitamin D3) 25 mcg PO DAILY simvastatin 5 mg PO QPM Tobacco use date assessed: 07/03/25 Dental Screening Dental Screen Date: 07/03/25 Did you have a dental visit in the last 12 months?: Yes Did you have a dental problem in the last 6 months where you did not have access to dental care?: No Was dental information given to patient?: Patient has dentist [facility] Medical History (Updated 07/03/25 @ 10:08 by Jen Petty MD) Colon cancer screening Closed left clavicular fracture Obesity (BMI 30-39.9) Hypercholesterolemia Vitamin D deficiency Surgical History History of left inguinal hernia repair History of inguinal hernia repair Family History (Updated 05/06/24 @ 08:47 by Ai Ahn CMA) Father Acute CVA (cerebrovascular accident) Hypertension Myocardial infarction Mother No problems noted. Paternal Grandmother CVD (cardiovascular disease) Myocardial infarction Paternal Grandfather Myocardial infarction Social History (Updated 05/06/24 @ 09:01 by Jen Petty MD) Housing: House Are you a primary healthcare market consultant to a significant other at home: No Do you presently have visiting nurse or other home services: No Alcohol intake: current Alcohol intake frequency: holidays/special occasions only Comment: 2 x a month 2-3 beers Patient Tobacco Use Status: Former Tobacco user Tobacco use type: Cigarette Years Smoked: quit 1992 e-Cigarette/Vaping Use: Never Used Second Hand Smoke Exposure: No service: No Current occupational status: employed Cognitive needs: No Hearing needs: No Vision needs: Yes Questionnaire PHQ-9 Over the last 2 weeks, how often have you been bothered by any of the following problems? 1. Little interest or pleasure in doing things: not at all 2. Feeling down, depressed, or hopeless: not at all 3. Trouble falling or staying asleep, or sleeping too much: not at all 4. Feeling tired or having little energy: not at all 5. Poor appetite or overeating: not at all 6. Feeling bad about yourself - or that you are a failure or have let yourself or your family down: not at all 7. Trouble concentrating on things, such as reading the newspaper or watching television: not at all 8. Moving or speaking so slowly that other people could have noticed. Or the opposite - being so fidgety or restless that you have been moving around a lot more than usual: not at all 9. Thoughts that you would be better off or of hurting yourself in some way: not at all Total score: 0 Depression Screening Interpretation: Negative Depression Screening Done: Yes Source: Developed by Drs. Bull Duong, Diana Terry, Car Patrick and colleagues, with an educational mazin from [employer]. Thrive Questionnaire Date Thrive assessed: 07/03/25 I am a: Patient What is your living situation today?: I have a steady place to live Within the past 12 months, did the food you bought not last and you didn't have the money to get more?: I choose not to answer this question Within the past 12 months, did you worry whether your food would run out before you got money to buy more?: I choose not to answer this question Do you have trouble paying for medicines?: No Do you have trouble getting transportation to medical appointments?: No Do you have trouble paying your heating and electricity bill?: No Do you have trouble taking care of your child, family member or friend?: No Do you have trouble with day-to-day activities such as bathing, preparing meals, shopping, managing finances, etc.?: No Are you currently unemployed and looking for a job?: No Are you interested in more education?: No Please select the resources that you would like help with: None Currently or been in a relationship where the following occur: No concerns reported THRIVE Score: 0 AUDIT C Alcohol Use Questionnaire (AUDIT-C) 1. How often do you have a drink containing alcohol?: 2-4 times a month 2. How many drinks containing alcohol do you have on a typical day when you are drinking?: 1 or 2 3. How often do you have six or more drinks on one occasion?: Never Total Score: 2 ROSI-7 AMB Questionnaire ROSI-7 Date ROSI - 7 assessed: 07/03/25 Feeling nervous, anxious, or on edge: 0 = Not at all Not being able to stop or control worryin = Not at all Worrying too much about different things: 0 = Not at all Trouble relaxin = Not at all Being so restless that it is hard to sit still: 0 = Not at all Becoming easily annoyed or irritable: 0 = Not at all Feeling afraid as if something awful might happen: 0 = Not at all Total ROSI-7 score (0-4 normal; 5-9 mild; 10-14 moderate; 15-21 severe): 0 Source: Developed by Drs. Bull Duong, Diana Terry, Car Patrick and colleagues, with an educational mazin from [employer]. Review of Systems Const Denies poor appetite and Denies weakness Eyes Denies no additional complaints ENT Reports Normal hearing present, Denies dizziness, Denies nasal congestion, Denies tinnitus and Denies sore throat Card Denies chest pain, Denies syncope, Denies rapid heart rate and Denies dyspnea Resp Denies cough and Denies dyspnea GI Denies change in stool character, Reports constipation, Denies diarrhea, Denies nausea and Denies vomiting Denies dysuria and Denies urinary frequency Neuro Reports Normal hearing present, Denies confusion, Denies dizziness, Denies syncope and Denies weakness Psych Denies confusion Physical exam (Primary Care) Vital Signs: Last Vital Signs Pulse 61 07/03/25 09:26 BP 130/72 07/03/25 09:26 Pulse Ox 98 07/03/25 09:26 Oxygen Delivery Method Room Air 07/03/25 09:26 BMI result Body Mass Index 33.1 Tobacco/Smoking Status: Tobacco use Status Tobacco use date assessed 07/03/25 07/03/25 09:27 Patient Tobacco Use Status Former Tobacco user 07/03/25 09:27 Tobacco use type Cigarette 07/03/25 09:27 e-Cigarette/Vaping Use Never Used 07/03/25 09:27 PHQ-9: PHQ-9 Score PHQ-9: Total score 0 07/03/25 10:11 Depression Screening Interpretation: Negative Thrive Assessment: Date of Thrive Assessment Date Thrive assessed 07/03/25 07/03/25 09:27 Currently or been in a relationship where the following occur: No concerns reported Const General: No confusion Orientation/consciousness: No confusion HENMT Head: Yes normocephalic Ears: external ears normal and TM's normal bilaterally Face and sinus: Yes normal facial exam Mouth: moist mucous membranes Throat: Yes tonsils normal Eyes Conjunctivae: conjunctivae normal Pupils: Equal, round and reactive pupils present and Pupil accommodation reflex normal Direct Ophthalmoscopy: normal light reflex Neck Neck: No lymphadenopathy Thyroid: Thyroid normal Chest Chest palpation & inspection: normal inspection of the chest Resp Effort & Inspection: normal respiratory effort and no audible wheezes Auscultation: clear to auscultation bilaterally, no crackles, no wheezes and lung sounds not diminished Cardio Rate: regular rate Rhythm: regular rhythm Peripheral pulses: radial pulses present and dorsalis pedis present GI Palpation (GI): no masses Auscultation: normal bowel sounds and normoactive bowel sounds Rectal Exam - Male: Yes deferred Skin General skin exam: no rashes or lesions noted Rashes: no rashes Neuro General: No confusion Cranial nerves: Yes Equal, round and reactive pupils present and Yes Normal hearing present Cognition (Neuro): normal cognition Gait exam (Neuro): Normal gait present Motor exam (neuro): 5/5 motor strength present throughout Deep tendon reflexes (DTR's): Right brachioradialis reflex intensity grade: 2+, Left brachioradialis reflex intensity grade: 2+, Right patellar reflex intensity grade: 2+ and Left patellar reflex intensity grade: 2+ Extrem General: No edema Coding Level of Care Code Est Pt Prev Care 40-64y(39464) Diagnoses Annual physical exam Z00.00 Obesity (BMI 30-39.9) E66.9 Hypercholesterolemia E78.00 Restless leg syndrome G25.81 Assessment & Plan Assessment & Plan (1) Annual physical exam: Code(s): Z00.00 - Encounter for general adult medical examination without abnormal findings Category: Medical Plan: Patient is advised to eat healthy, keep well hydrated, keep active and have adequate sleep. (2) Obesity (BMI 30-39.9): Code(s): E66.9 - Obesity, unspecified Category: Medical Plan: Diet and exercise (3) Hypercholesterolemia: Code(s): E78.00 - Pure hypercholesterolemia, unspecified Category: Medical Plan: Avoid fried foods, chicken skin, eggs, butter margarine, pastries and meat. Be it pork or beef they have a lot of cholesterol LDL goal of less than 130 and triglyceride of less than 150. Patient on simvastatin 5 mg once a day (4) Restless leg syndrome: Code(s): G25.81 - Restless legs syndrome Category: Medical Plan History of Present Illness The patient is a 55-year-old male presenting for a physical examination and management of hypercholesterolemia. The patient has a history of hypercholesterolemia, with recent blood work showing an LDL level of 126 mg/dL and triglycerides at 129 mg/dL. He is currently on simvastatin 5 mg daily, with a target LDL goal of less than 130 mg/dL and triglycerides less than 150 mg/dL. The patient reports experiencing symptoms consistent with restless leg syndrome, particularly after physical exertion such as gym workouts and playing hockey. He describes the sensation as discomfort in the legs, which is alleviated by using a lotion and ensuring adequate hydration. The patient underwent hernia repair, which was previously swollen, and reports no current issues post-repair. Family history is significant for cardiovascular events, including strokes and heart attacks in his father, grandmother, and grandfather. He denies any family history of cancer. The patient received a shingles vaccination, completing the series without complications. Social history reveals that the patient engages in regular physical activity, including playing hockey twice a week and gym workouts. He consumes alcohol occasionally, primarily beer, and has not smoked since 1992. Health Maintenance - Shingles vaccination completed without complications - Regular physical activity: Hockey twice a week and gym workouts - Alcohol consumption: Occasional, primarily beer - Smoking cessation since 1992 Social History - Exercise: Engages in regular physical activity, including playing hockey twice a week and gym workouts - Alcohol use: Consumes alcohol occasionally, primarily beer - Smoking history: Quit smoking in 1992 Review of Systems - General: Denies fever, weight loss, or fatigue - Cardiovascular: Denies chest pain, palpitations, or syncope - Respiratory: Denies dyspnea, cough, or wheezing - Gastrointestinal: Denies nausea, vomiting, diarrhea, or constipation - Genitourinary: Denies dysuria or hematuria - Neurological: Reports discomfort in legs at night, denies dizziness or head aches Physical Exam General: Cooperative, healthy appearing, comfortable, no acute distress and well developed Orientation: Patient oriented x3 Limitations: No limitations Head: Normal to inspection Ears: Hearing grossly normal bilaterally Nose: Normal external nose present Face and sinus: Normal facial exam Eyes: Appearance normal, both eyes and all related structures Neck: Normal visual inspection and Yes full ROM Respiratory: Normal respiratory effort and able to speak in complete sentences. Clear to auscultation bilaterally Cardiovascular: Regular rate and rhythm. Normal S1 and S2 GI: Normal to inspection. Soft to palpation and nontender Skin: No rashes or lesions noted Neuro: Patient oriented x3 Extremities: Normal to inspection, occasional discomfort in legs after exercise, no numbness or pins and needles sensation. Results - Labs: Normal blood count, electrolytes, renal function, blood sugar, liver function, B12, folic acid, thyroid levels - Lipid Profile: LDL 126 mg/dL, triglycerides 129 mg/dL Plan Patient was informed and verbally consented to the use of an ambient scribe for clinic note documentation during this visit. 1. Hypercholesterolemia The patient is currently on simvastatin 5 mg daily to manage hypercholesterolemia, with a target LDL goal of less than 130 mg/dL and triglycerides less than 150 mg/dL. His recent lipid profile shows an LDL of 126 mg/dL and triglycerides at 129 mg/dL, indicating good control. 2. Restless Leg Syndrome The patient experiences symptoms of restless leg syndrome, particularly after physical exertion, which are managed by ensuring adequate hydration and using a lotion for relief. He has been advised to monitor symptoms and consider medication if symptoms persist or worsen. 3. Hernia (Post-Repair) The patient has undergone hernia repair and reports no current issues, indicating successful resolution of the condition. 4. Preventative Care: Shingles Vaccination The patient has completed the shingles vaccination series without complications, providing protection against herpes zoster. Discussion Notes During the visit, we discussed the management of hypercholesterolemia, emphasizing the importance of maintaining LDL levels below 130 mg/dL and triglycerides below 150 mg/dL. We also addressed the patient's restless leg syndrome, advising on hydration and the potential use of medication if symptoms persist. The patient was informed about the successful completion of the shingles vaccination series and its benefits. Patient Instructions - Continue taking simvastatin 5 mg daily to manage cholesterol levels. - Ensure adequate hydration, especially after physical activities, to help manage restless leg symptoms. - Monitor restless leg symptoms and consider medication if they worsen. - Maintain regular physical activity and a healthy diet. - Follow up with the clinic if any new symptoms arise or if there are concerns about current conditions. Orders: Orders Complete Blood Count Auto Diff 1 Year E78.00 - Pure hypercholesterolemia, unspecified Comprehensive Met. Panel 1 Year E78.00 - Pure hypercholesterolemia, unspecified Free T4 (Free Thyroxine) 1 Year E78.00 - Pure hypercholesterolemia, unspecified Thyroid Stimulating Hormone 1 Year E78.00 - Pure hypercholesterolemia, unspecified UA CC w/rflx Micro + Cult 1 Year E78.00 - Pure hypercholesterolemia, unspecified, R30.0 - Dysuria Vitamin B12 and Folate 1 Year E78.00 - Pure hypercholesterolemia, unspecified Magnesium 1 Year E78.00 - Pure hypercholesterolemia, unspecified Uric Acid 1 Year E78.00 - Pure hypercholesterolemia, unspecified Lipid Panel 1 Year E78.00 - Pure hypercholesterolemia, unspecified Prostate Specific Antigen Scr 1 Year E78.00 - Pure hypercholesterolemia, unspecified Medications: New ropinirole administer 1-3 hours before bedtime 0.25 mg PO BEDTIME 30 tabs 2RF G25.81 - Restless legs syndrome
--- OUTSIDE RECORDS SUMMARY | 2025-07-03 10:04 | XMS_ITS | Patient Health Record ---
Author Organization [facility] Address [address] [place] [id number] Care Team Providers Care Manufacturing Mechanic Name Role Phone Jen Petty MD Primary Care Provider Leandro Miguel Jr Unavailable [phone] Allergies No Known Allergies Reason For [...] Problem Status W/U Status Risk Notes Problem [id number] Colon cancer screening (Z12.11) Active confirmed Problem [id number] Encounter for other preprocedural examination (Z01.818) Active confirmed Plan Of Treatment Future Test Test Name Order Date COLONOSCOPY 01/24/2022 Insurance Providers Payer Name Payer Address Payer Phone Subscriber Number Group Number Insured Name Patient Relationship to Insured Coverage Start Date Coverage End Date [facility] [employer] [address] [place] [address] [id number] Self - patient is the insured Medical (General) History Medical History History ICD Code high cholesterol Left inguinal hernia, repair scheduled Surgical History Surgery Date(Month/Year) hernia 2002
== END 2025-07-03 10:22 | disposition home or self-care (01) ==
LOC: HO.HMCH 09:22
PROVIDERS: PCP Internal Medicine; Visit Provider Internal Medicine
DX: Z00.00 Encounter for general adult medical examination without abnormal findings (principal); E66.9 Obesity, unspecified; Z68.33 Body mass index [BMI] 33.0-33.9, adult; E78.00 Pure hypercholesterolemia, unspecified; G25.81 Restless legs syndrome